=== PATIENT | male | born 1970 | race Caucasian/White ===

== ENCOUNTER 2021-06-28 20:03 | Inpatient (IN) ==
[2021-06-28] MEDS ORDERED: SODIUM CHLORIDE 0.9% 1000ML 1,000 ML IV SCH (20:30)
[2021-06-28 20:58] LABS: Basophils # (auto) 0.01 K/uL (0-0.2); Basophils % (auto) 0.1 %; Eosinophils % (auto) 0.7 %; Hematocrit (blood only) 38.7 % (42-52); Immature Granulocytes # (auto) 0.04 K/uL (0.00-0.02); Immature Granulocytes % (auto) 0.3 %; Lymphocytes # (auto) 1.07 K/uL (1.2-3.4); Lymphocytes % (auto) 7.5 %; Mean Corpuscular Hemoglobin 25.8 pg (25-34); Mean Corpuscular Hgb Conc 33.6 g/dL (32-36); Mean Corpuscular Volume 76.8 fL (80-100); Mean Platelet Volume 8.7 fL (7.4-10.4); Monocytes # (auto) 1.33 K/uL (0.11-0.59); Monocytes % (auto) 9.3 %; Neutrophils # (auto) 11.79 K/uL (1.4-6.5); Neutrophils % (auto) 82.1 %; Platelet Count 161 K/uL (130-400); RDW Coefficient of Variation 14.6 % (11.5-14.5); RDW Standard Deviation 41.1 fL (36.4-46.3); Red Blood Count 5.04 M/uL (4.7-6.1); White Blood Count 14.34 K/uL (4.8-10.8)
[2021-06-28 21:07] LABS: iSTAT Creatinine 1.3 mg/dl (0.6-1.3); iSTAT Hemoglobin 12.9 g/dl (14.0-18.0); iSTAT Ionized Calcium 1.23 mmol/l (1.12-1.32); iSTAT Potassium 3.7 mmol/L (3.3-5.0)
[2021-06-28 21:08] LABS: INR 1.1 (0.9-1.1); Partial Thromboplastin Ratio 1.2; Partial Thromboplastin Time 31.1 Seconds (21.0-31.0); Prothrombin Time 10.7 Seconds (9.0-12.0)
[2021-06-28 21:10] LABS: Appearance Urine Clear (Clear); Bacteria Urine Automated Negative (Negative); Bilirubin Urine Negative (Negative); Blood Urine Trace (Negative); Cast Urine Automated 0 /lpf (0-5); Color Urine Yellow; Epithelial Cell Urine Auto 20-30 /lpf (0-5); Glucose Urine UA Negative (Negative); Ketones Urine Negative (Negative); Leukocyte Esterase Urine Negative (Negative); Nitrite Urine Negative (Negative); Protein Urine Trace (Negative); RBC Urine Automated 0-4 /hpf (0-4); Specific Gravity Urine 1.017 (1.000-1.030); Urobilinogen Urine Negative (Negative)
[2021-06-28 21:17] LABS: Alanine Aminotransferase 23 U/L (12-78); Albumin Level 3.2 gm/dl (3.4-5.0); Aspartate Aminotransferase 12 U/L (15-37); Blood Urea Nitrogen 13 mg/dl (7-18); Calcium 9.4 mg/dl (8.5-10.1); Carbon Dioxide 25 mmol/L (21-32); Chloride 104 mmol/L (98-107); Creatinine Clr Calc Pharmacy 96.4 ml/min; Est GFR (African American) 71.7 ml/min; Est GFR (Non-African American) 61.9 ml/min; Glucose 131 mg/dl (70-99); Magnesium 2.1 mg/dl (1.8-2.4); Potassium 3.7 mmol/L (3.5-5.1); Sodium 135 mmol/L (136-145)
[2021-06-28 21:21] LABS: Albumin Globulin Ratio 0.8 (0.9-2); Alkaline Phosphatase 97 U/L (45-117); Globulin 3.9 gm/dl (2.5-4.0); Total Protein 7.1 gm/dl (6.4-8.2); Troponin I < 0.015 ng/ml (0-0.045)
[2021-06-28] MEDS ORDERED: OPTIRAY 320 100ml IV ONE (21:55)
[2021-06-28] MEDS ORDERED: VANCOMYCIN HCL 2,750 MG in SODIUM CHLORIDE 0.9% 500 ML IV ONE (22:35)
[2021-06-28] MEDS ORDERED: PIPERACILLIN/TAZOBACTAM 4.5 GM/120 ML BAG IV ONE (22:35)
[2021-06-28] MEDS ORDERED: VANCOMYCIN CONSULT ACTIVE PRN (22:35)
[2021-06-28] MEDS ORDERED: ACETAMINOPHEN 1,000 MG/100 ML VIAL IV STA (22:52)
--- NOTE | 2021-06-28 23:00 | History & Physical Report ---
Date of Service June 28, 2021 Assessment & Plan (1) Perineal abscess: Plan: 1. Perineal Abscess - CT Pelvis: Tubular shaped, curvilinear peripheral enhancing fluid collection 9 x2.4cm abscess from base of penis to scrotal junction. - s/p I&D in OR by urology - vanc and zosyn for MRSA and gram neg/anerobic coverage - blood culture and anerobic culture pending - telemetry monitoring 2. DM2 - SSI - A1c in AM DVT ppx: scds FEN/GI: dm2 diet Code status: full code dispo: Tele (2) Diabetes: History of Present Illness Primary Care Provider: Robinson Pinedokayla 50 yo M with hx recurrent perineal abscesses, psoriasis and diabetes in ER for repeat abscess formation. He is on tremfya for treatment of the psoriasis, and noticed that he usually gets these infections about 1 week after he gets the shot. States the pain is 0/10 when sitting still in bed, 4/10 when trying to adjust and move around the bed. Had a fever of 102 and chills at home. 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)) ferrous fumarate 325 mg (106 mg 325 mg PO HS 11/21/19 06/28/21 History iron) tablet metformin 1,000 mg tablet 1,000 mg PO BID 11/21/19 06/28/21 History pantoprazole 40 mg granules 40 mg PO Q OTHER DAY 11/21/19 06/28/21 History delayed-release for susp in packet metoprolol tartrate 50 mg tablet 50 mg PO QPM 12/02/19 06/28/21 History metoprolol tartrate 50 mg tablet 100 mg PO QAM 12/02/19 06/28/21 History betamethasone dipropionate 0.05 % 1 applic TOPICAL BID #15 g 08/03/20 06/28/21 Rx topical cream nystatin 100,000 unit/gram topical 1 applic TOP BID #15 gm 08/03/20 06/28/21 Rx cream cetirizine 10 mg tablet 10 mg PO QAM 09/17/20 06/28/21 History lisinopril 2.5 mg tablet 2.5 mg PO HS 09/17/20 06/28/21 History semaglutide (Ozempic) 0.5 mg SUBCUT WK 09/22/20 06/28/21 History tadalafil 5 mg tablet 18.5 mg PO DAILY #30 tab 03/23/21 06/28/21 Rx sulfamethoxazole 800 1 tab PO BID 10 Days #20 tab 06/27/21 06/28/21 Rx mg-trimethoprim 160 mg tablet (Bactrim DS) ibuprofen 200 mg tablet 200 mg PO Q6H PRN 06/28/21 06/28/21 History Past Med/Surg History Medical History Diabetes mellitus, type 2 NIDDM GERD (gastroesophageal reflux disease) HTN (hypertension) Hyperlipidemia Morbid obesity Psoriasis PVC (premature ventricular contraction) Pt relates they essentially stopped when he stopped using Flonase Thalassemia Urethral stricture Surgical History H/O drainage of abscess History of colonoscopy History of cystoscopy 12/02/2019 [facility] History of esophagogastroduodenoscopy (EGD) History of surgery perineal abscess drained and excised History of urethrotomy History of wisdom tooth extraction Family History Grandmother Diabetes Grandmother Diabetes Father Family history of diabetes mellitus Aunt Family history of diabetes mellitus Grandmother (Paternal) Family history of diabetes mellitus Other No family history of adverse response to anesthesia Social History Smoking Status: Former smoker Smoking End Date: 10 years ago; Second Hand Exposure: No; Hx Alcohol Use: Yes Alcohol type: beer Hx Substance Use: No Preferred Language: Uzbek Communication Ability: Effective House Player Required: No Beliefs That Will Affect Care: Worship Worship Beliefs: jewish marital status: Current Living Situation: Spouse and Family Current Living Situation Comment: and 2 kids current occupational status: employed Feels Safe at Home: Yes Safety Concerns: Feels Safe At This Time Assistive Devices: Glasses Review of Systems Constitutional: + fever and + chills; no sweats and no fatigue Eyes: no blind spots and no discharge Ear, Nose, Mouth, Throat: no hearing loss and no nasal congestion Respiratory: no cough and no dyspnea Cardiovascular: no chest pain, no dyspnea on exertion and no edema Gastrointestinal: no abdominal pain, no nausea, no vomiting, no constipation, no diarrhea/loose stools and no blood in stools Genitourinary: + genital pain, + scrotal swelling and + testicle pain; no dysuria, no difficulty urinating or no hematuria Musculoskeletal: no joint pain and no myalgia Neurologic: no tingling, no numbness and no headache(s) Endocrine: no fatigue Physical Exam Physical Exam: Constitutional: obese, sitting comfortably in bed, Eyes: EOMI, pupils equal and reactive bilaterally, no scleral icterus Cardiac: RRR, no murmurs, gallops or rubs. Normal S1, S2 Pulm: CTA BL, no wheezes, rhonchi, crackles or rubs, moving air well throughout both lungs Abd: soft, nontender, nondistended, normal bowel sounds, no rebound or guarding : deferred by patient request, see Urology note Extremities: 2+ peripheral pulses, no edema Neuro: no focal deficits, moving all 4 limbs, A&Ox3 Results & Data Results & Data ([facility]) Vital Signs (Past 12 Hours) Vital Signs Temp Pulse Pulse Resp BP BP Pulse Ox 06/28/21 22:36 102 H 16 111/69 96 06/28/21 20:49 96 06/28/21 20:08 38.6 C H 106 H 20 99/54 L 93 Laboratory Results Laboratory Results WBC 14.34 K/uL (4.8-10.8) H 06/28/21 20:45 RBC 5.04 M/uL (4.7-6.1) 06/28/21 20:45 Hgb 13.0 g/dL (14.0-18.0) L 06/28/21 20:45 POC Hgb 12.9 g/dl (14.0-18.0) L 06/28/21 20:54 Hct 38.7 % (42-52) L 06/28/21 20:45 POC Hct 38 % (42-52) L 06/28/21 20:54 MCV 76.8 fL (80-100) L 06/28/21 20:45 MCH 25.8 pg (25-34) 06/28/21 20:45 MCHC 33.6 g/dL (32-36) 06/28/21 20:45 RDW Std Deviation 41.1 fL (36.4-46.3) 06/28/21 20:45 RDW Coeff of Matthias 14.6 % (11.5-14.5) H 06/28/21 20:45 Plt Count 161 K/uL (130-400) 06/28/21 20:45 MPV 8.7 fL (7.4-10.4) 06/28/21 20:45 Immature Gran % (Auto) 0.3 % 06/28/21 20:45 Neut % (Auto) 82.1 % 06/28/21 20:45 Lymph % (Auto) 7.5 % 06/28/21 20:45 [place] % (Auto) 9.3 % 06/28/21 20:45 Eos % (Auto) 0.7 % 06/28/21 20:45 Baso % (Auto) 0.1 % 06/28/21 20:45 Neut # (Auto) 11.79 K/uL (1.4-6.5) H 06/28/21 20:45 Lymph # (Auto) 1.07 K/uL (1.2-3.4) L 06/28/21 20:45 [place] # (Auto) 1.33 K/uL (0.11-0.59) H 06/28/21 20:45 Eos # (Auto) 0.10 K/uL (0-0.5) 06/28/21 20:45 Baso # (Auto) 0.01 K/uL (0-0.2) 06/28/21 20:45 Immature Gran # (Auto) 0.04 K/uL (0.00-0.02) H 06/28/21 20:45 PT 10.7 Seconds (9.0-12.0) 06/28/21 20:45 INR 1.1 (0.9-1.1) 06/28/21 20:45 APTT 31.1 Seconds (21.0-31.0) H 06/28/21 20:45 PTT Ratio 1.2 06/28/21 20:45 POC Sodium 136 mmol/L (135-144) 06/28/21 20:54 Sodium 135 mmol/L (136-145) L 06/28/21 20:45 POC Potassium 3.7 mmol/L (3.3-5.0) 06/28/21 20:54 Potassium 3.7 mmol/L (3.5-5.1) 06/28/21 20:45 POC Chloride 98 mmol/L (101-112) L 06/28/21 20:54 Chloride 104 mmol/L (98-107) 06/28/21 20:45 Carbon Dioxide 25 mmol/L (21-32) 06/28/21 20:45 POC Total CO2 22 mmol/L (24-31) L 06/28/21 20:54 Anion Gap 6.0 (3-11) 06/28/21 20:45 POC Anion Gap 21.0 mmol/L (16-25) 06/28/21 20:54 POC BUN 14 mg/dl (7-18) 06/28/21 20:54 BUN 13 mg/dl (7-18) 06/28/21 20:45 Creatinine 1.33 mg/dl (0.6-1.4) 06/28/21 20:45 POC Creatinine 1.3 mg/dl (0.6-1.3) 06/28/21 20:54 Est Cr Clr Drug Dosing 96.4 ml/min 06/28/21 20:45 Est GFR ( Amer) 71.7 ml/min 06/28/21 20:45 Est GFR (Non-Af Amer) 61.9 ml/min 06/28/21 20:45 BUN/Creatinine Ratio 10.0 (10-20) 06/28/21 20:45 Glucose 131 mg/dl (70-99) H 06/28/21 20:45 POC Glucose 111 mg/dl (70-99) H 06/29/21 01:26 POC Glucose (other) 138 mg/dl (70-99) H 06/28/21 20:54 Lactate 1.6 mmol/L (0.4-2.0) 06/28/21 20:45 Calcium 9.4 mg/dl (8.5-10.1) 06/28/21 20:45 POC Ioniz Calcium Kar 1.23 mmol/l (1.12-1.32) 06/28/21 20:54 Magnesium 2.1 mg/dl (1.8-2.4) 06/28/21 20:45 Total Bilirubin 1.0 mg/dl (0.2-1) 06/28/21 20:45 AST 12 U/L (15-37) L 06/28/21 20:45 ALT 23 U/L (12-78) 06/28/21 20:45 Alkaline Phosphatase 97 U/L (45-117) 06/28/21 20:45 Troponin I < 0.015 ng/ml (0-0.045) 06/28/21 20:45 Total Protein 7.1 gm/dl (6.4-8.2) 06/28/21 20:45 Albumin 3.2 gm/dl (3.4-5.0) L 06/28/21 20:45 Globulin 3.9 gm/dl (2.5-4.0) 06/28/21 20:45 Albumin/Globulin Ratio 0.8 (0.9-2) L 06/28/21 20:45 Procalcitonin 0.08 ng/ml (0-0.5) 06/28/21 20:45 Urine Color Yellow 06/28/21 20:40 Urine Appearance Clear (Clear) 06/28/21 20:40 Urine pH 6.0 (4.5-7.5) 06/28/21 20:40 Ur Specific [place] 1.017 (1.000-1.030) 06/28/21 20:40 Urine Protein Trace (Negative) H 06/28/21 20:40 Urine Glucose (UA) Negative (Negative) 06/28/21 20:40 Urine Ketones Negative (Negative) 06/28/21 20:40 Urine Blood Trace (Negative) H 06/28/21 20:40 Urine Nitrite Negative (Negative) 06/28/21 20:40 Urine Bilirubin Negative (Negative) 06/28/21 20:40 Urine Urobilinogen Negative (Negative) 06/28/21 20:40 Ur Leukocyte Esterase Negative (Negative) 06/28/21 20:40 Urine WBC (Auto) 1-5 /hpf (0-5) 06/28/21 20:40 Urine RBC (Auto) 0-4 /hpf (0-4) 06/28/21 20:40 U Hyaline Cast (Auto) 0 /lpf (0-5) 06/28/21 20:40 U Epithel Cells (Auto) 20-30 /lpf (0-5) H 06/28/21 20:40 Urine Bacteria (Auto) Negative (Negative) 06/28/21 20:40 COVID-19 Eval Order Covid19 at [facility] 06/28/21 22:47 SARS-CoV-2 (PCR) NEGATIVE (Negative) 06/28/21 22:47 Supervising Physician Co-Signing Physician Notes Attending addendum: I have physically seen this patient, have supervised the medical residents activities, and agree with the H&P unless as otherwise noted. Assessment and Plan: Perineal abscess- Being taken to the OR this evening by urology for I&D Empiric antibiotics with vancomycin IV and Zosyn IV per pharmacokinetic monitoring Follow all cultures Admit to monitored bed to monitor for possible sepsis post procedure Diabetes mellitus- N.p.o. for now Placed on Accu-Cheks before meals and at bedtime with NovoLog coverage per scale Check hemoglobin A1c Remaining orders and notations as noted Resident Activity Tracking Resident Involvement: Resident Care Provided Care Provided: Adult Hospital Medicine
--- NOTE | 2021-06-28 23:14 | Urology Consultation ---
Date of Consultation June 28, 2021 Assessment & Plan (1) Perineal abscess: Patient is being admitted to the hospital and the hospitalist service. Due to the CT scan findings and the fact that the patient is febrile with tachycardia did discuss case with Dr. Hodgson of urology and is planning on incision and drainage of this abscess this evening. We will keep the patient n.p.o. We will maintain the patient on broad-spectrum antibiotics. He has received vancomycin and Zosyn in the emergency department A Covid test has been performed and is pending we will follow for the results of this. Additional recommendations will be forthcoming based on operative findings as well as patient's postoperative course as it unfolds. ATTENDING NOTE: Agree with above. Independently evaluated, assessed, examined, and consented. Plan for Incision and drainage of abscess from perineum tracking towards scrotum and penile tissues. Sepsis with tachycardia, hypotension, and fever. Multiple comorbidities. Risks and benefits discussed at length for procedure. These include bleeding, infection, injury to surrounding tissues or organs, and risks associated with anesthesia. Patient states understanding and agrees to proceed. Will sign consent and proceed. Agree with plan for broad spectrum abx. Will need wound care for management of abscess with packing. History of Present Illness Reason for Consultation: Perineal abscess History of Present Illness This is a 50-year-old male with a history of recurrent perineal abscesses. Patient's records were reviewed and patient was initially seen for this problem by Dr. Xavi Flood in [place]. Patient was noted to have recurrent perineal abscesses and available records show that Dr. Flood performed a colonoscopy which did not show any fistulous and he also performed an I&D of a perineal abscess in August 2019. Patient had continued recurrence of this problem so he was ultimately seen by Dr. Kaveh Flood at [facility] where an I&D of the perineal abscess was performed most recently in September 2020. Patient does note that since this most recent I&D of his perineal abscess he continued to have recurrence of these abscesses. He notes that they are usually superficial and communicate with the skin and often drained spontaneously without any further sequela. Patient notes that his current presentation to [facility] occurred couple days ago when patient noted some increasing pain, erythema, and warmth of his perineum. In addition he has had fevers and chills. He denies any nausea vomiting. He does have a slight cough but denies any chest pain. Because of a history of perineal abscesses he did report to [facility]. In the emergency department the patient had labs and imaging which independent reviewed. Patient did have a CT scan of his pelvis that showed a tubular shaped curvilinear enhancing fluid collection measuring about 9 cm in length with a diameter of 2.4 cm concerning for perineal abscess. The abscess in question extends from the base of the penis and courses through the subcutaneous fat to the perineum terminating near the scrotal junction. Labs included a CBC were white blood cell count was 14.3. Hemoglobin and hematocrit were 13.0 and 12.9. Patient's platelet count was noted to be within normal range. Chemistry profile showed sodium was 135 and potassium was 3.7. BUN and creatinine were both noted to be within normal range. A lactic acid level was noted to be normal. A Covid test was performed and is pending. Chest x-ray did not show any evidence of pneumonia. An EKG showed sinus tachycardia without acute ischemic changes. I did question the patient on additional symptoms. The patient says that he does not have any dysuria or urinary hesitancy. He also denies any change in his bowel habits. Concerning his diabetes he reports that this is well controlled with his most recent hemoglobin A1c within the past several weeks was 5.6. He notes that his sugars run between 120 and 140 in the mornings. Patient notes that his most recent oral intake was at approximately 6:00 PM this evening when he had a bowl of chicken soup. He does not report any additional oral intake since that time. At the time of my exam the patient had a slight tachycardia with a heart rate of approxione 102. He was normotensive but he was febrile. He did appear to be uncomfortable. 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)) ferrous fumarate 325 mg (106 mg 325 mg PO HS 11/21/19 06/28/21 History iron) tablet metformin 1,000 mg tablet 1,000 mg PO BID 11/21/19 06/28/21 History pantoprazole 40 mg granules 40 mg PO Q OTHER DAY 11/21/19 06/28/21 History delayed-release for susp in packet metoprolol tartrate 50 mg tablet 50 mg PO QPM 12/02/19 06/28/21 History metoprolol tartrate 50 mg tablet 100 mg PO QAM 12/02/19 06/28/21 History betamethasone dipropionate 0.05 % 1 applic TOPICAL BID #15 g 08/03/20 06/28/21 Rx topical cream nystatin 100,000 unit/gram topical 1 applic TOP BID #15 gm 08/03/20 06/28/21 Rx cream cetirizine 10 mg tablet 10 mg PO QAM 09/17/20 06/28/21 History lisinopril 2.5 mg tablet 2.5 mg PO HS 09/17/20 06/28/21 History semaglutide (Ozempic) 0.5 mg SUBCUT WK 09/22/20 06/28/21 History tadalafil 5 mg tablet 18.5 mg PO DAILY #30 tab 03/23/21 06/28/21 Rx sulfamethoxazole 800 1 tab PO BID 10 Days #20 tab 06/27/21 06/28/21 Rx mg-trimethoprim 160 mg tablet (Bactrim DS) ibuprofen 200 mg tablet 200 mg PO Q6H PRN 06/28/21 06/28/21 History Patient History Medical History Diabetes mellitus, type 2 NIDDM GERD (gastroesophageal reflux disease) HTN (hypertension) Hyperlipidemia Morbid obesity Psoriasis PVC (premature ventricular contraction) Pt relates they essentially stopped when he stopped using Flonase Thalassemia Urethral stricture Surgical History H/O drainage of abscess History of colonoscopy History of cystoscopy 12/02/2019 [facility] History of esophagogastroduodenoscopy (EGD) History of surgery perineal abscess drained and excised History of urethrotomy History of wisdom tooth extraction Family History Grandmother Diabetes Grandmother Diabetes Father Family history of diabetes mellitus Aunt Family history of diabetes mellitus Grandmother (Paternal) Family history of diabetes mellitus Other No family history of adverse response to anesthesia Social History Smoking Status: Current every day smoker Second Hand Exposure: No; Hx Alcohol Use: Yes Alcohol type: beer Hx Substance Use: No Preferred Language: Czech Communication Ability: Effective Infection Prevention Specialist Required: No Beliefs That Will Affect Care: None and Caodaism Caodaism Beliefs: sabianism marital status: Current Living Situation: Spouse current occupational status: employed Feels Safe at Home: Yes Assistive Devices: Glasses Review of Systems Constitutional: + fever and + chills Eyes: no diplopia Ear, Nose, Mouth, Throat: no ear pain and no sore throat Respiratory: + cough; no dyspnea Cardiovascular: no chest pain Gastrointestinal: no abdominal pain, no nausea and no vomiting Genitourinary: + as per Subjective / HPI; no dysuria Musculoskeletal: no back pain Integumentary: no rash Neurologic: no localized weakness Physical Exam Constitutional: well developed, well nourished and + obese Eyes: no conjunctival abnormality ENMT: Ears: no hearing impairment and no external ear abnormality Nose: no external nose abnormality Mouth: no lip abnormality Neck: trachea midline Respiratory: normal respiratory effort; no respiratory distress and no labored breathing Cardiovascular: Rate/Rhythm: regular rate and regular rhythm Gastrointestinal (Abdomen): Abdomen is soft and nondistended. There is no pain with palpation. Musculoskeletal: No gross orthopedic abnormalities. No calf tenderness Skin: no rashes Neurologic: moves all extremities Psychiatric: A+Ox3, euthymic affect Genitourinary: Patient's perineal area was examined. The area between the scrotum and rectum was markedly indurated, erythematous, and warm. The area was painful to palpation. There were no open areas or draining. Results & Data ([facility]) Vital Signs (Past 12 Hours) Vital Signs Temp Pulse Pulse Resp BP BP Pulse Ox 06/28/21 22:36 102 H 16 111/69 96 06/28/21 20:49 96 06/28/21 20:08 38.6 C H 106 H 20 99/54 L 93 PG Care Time/CCT Total # of Minutes Spent Total Time Spent with Patient: Total time spent is greater than 50% in coordination of care (as documented) at patient's floor/unit and/or counseling patient: Coding Level of Care Code 32105 Inpt Consult Level 5 Diagnoses Perineal abscess L02.215
[2021-06-28] MEDS ORDERED: ePHEDrine sulfate 50 MG/ML AMP IV PRN (23:47)
[2021-06-28] MEDS ORDERED: ONDANSETRON INJ 2 MG/ML 2 ML VIAL IV PRN (23:47)
[2021-06-28] MEDS ORDERED: HYDROmorphone INJ 2 MG/ML SYR/VIAL IV PRN (23:47)
[2021-06-28] MEDS ORDERED: fentaNYL citrate 100 MCG/2 ML VIAL IV PRN (23:47)
[2021-06-28] MEDS ORDERED: ATROPINE SULFATE 0.1 MG/ML 10ML SYR IV PRN (23:47)
--- NOTE | 2021-06-28 23:47 | Anesthesiology Consultation ---
Date of Service June 28, 2021 Assessment & Plan Chart Review Chart Review: Acceptable Risk for Surgery Consults Requested none ASA [id number] Proposed Anesthesia Anesthesia Type: General Risk / Benefits Reviewed With: PT / POA / Parent / Guardian, Accepts Plan and Informed Consent Obtained History Surgery Operation Date: 06/28/21 23:30 Proposed Procedures p Scrotal Hydrocelectomy - Otoniel Hodgson, DO Height/Weight Height: 6 ft 2 in Weight: 133.1 kg Allergies Allergy/AdvReac Type Severity Reaction Status Date / Time No Known Allergies Allergy Verified 06/28/21 21:22 Medications Home Medications Medication Instructions Recorded Confirmed Last Taken atorvastatin 20 mg tablet 20 mg PO QPM 11/21/19 06/28/21 06/28/21 famotidine 20 mg tablet (Acid 20 mg PO QAM 11/21/19 06/28/21 06/28/21 [employer] (famotidine)) ferrous fumarate 325 mg (106 mg 325 mg PO HS 11/21/19 06/28/21 06/28/21 iron) tablet metformin 1,000 mg tablet 1,000 mg PO BID 11/21/19 06/28/21 06/28/21 pantoprazole 40 mg granules 40 mg PO Q OTHER DAY 11/21/19 06/28/21 06/28/21 delayed-release for susp in packet metoprolol tartrate 50 mg tablet 50 mg PO QPM 12/02/19 06/28/21 06/28/21 metoprolol tartrate 50 mg tablet 100 mg PO QAM 12/02/19 06/28/21 06/28/21 betamethasone dipropionate 0.05 % 1 applic TOPICAL BID #15 g 08/03/20 06/28/21 09/14/20 topical cream nystatin 100,000 unit/gram topical 1 applic TOP BID #15 gm 08/03/20 06/28/21 09/26/20 cream cetirizine 10 mg tablet 10 mg PO QAM 09/17/20 06/28/21 06/28/21 lisinopril 2.5 mg tablet 2.5 mg PO HS 09/17/20 06/28/21 06/28/21 semaglutide (Ozempic) 0.5 mg SUBCUT WK 09/22/20 06/28/21 06/24/21 tadalafil 5 mg tablet 18.5 mg PO DAILY #30 tab 03/23/21 06/28/21 Unknown sulfamethoxazole 800 1 tab PO BID 10 Days #20 tab 06/27/21 06/28/21 06/28/21 mg-trimethoprim 160 mg tablet (Bactrim DS) ibuprofen 200 mg tablet 200 mg PO Q6H PRN 06/28/21 06/28/21 06/28/21 Active Medications Generic Name Dose Route Start Last Admin Trade Name Freq PRN Reason Stop Dose Admin Vancomycin HCl 2,750 mg/ 555 mls @ 200 mls/hr 06/28/21 22:35 06/28/21 23:02 Sodium Chloride IV 06/29/21 01:21 200 mls/hr NOW ONE Administration NPO Date Last Intake of Fluids: 06/28/21 Time Last Intake of Fluids: 18:00 Date Last Intake of Solids: 06/28/21 Time Last Intake of Solids: 18:00 Past Medical History Medical History Diabetes mellitus, type 2 NIDDM GERD (gastroesophageal reflux disease) HTN (hypertension) Hyperlipidemia Morbid obesity Psoriasis PVC (premature ventricular contraction) Pt relates they essentially stopped when he stopped using Flonase Thalassemia Urethral stricture Exercise / Class Metabolic Activity II 4-5 Yardwork/Stairs/Walk up hill Past Family History Family History Grandmother Diabetes Grandmother Diabetes Father Family history of diabetes mellitus Aunt Family history of diabetes mellitus Grandmother (Paternal) Family history of diabetes mellitus Other No family history of adverse response to anesthesia Past Surgical History Surgical History H/O drainage of abscess History of colonoscopy History of cystoscopy 12/02/2019 [facility] History of esophagogastroduodenoscopy (EGD) History of surgery perineal abscess drained and excised History of urethrotomy History of wisdom tooth extraction Past Anesthesia History No Hx of Anesthesia Complications and No Family Hx of Anesthesia Complications History of PONV No Hx of PONV and No Hx of Motion Sickness Social History Smoking Status: Current every day smoker tobacco type: cigarettes Hx Alcohol Use: Yes Alcohol type: beer alcohol intake frequency: a few times a month Hx Substance Use: No substance use type: does not use Physical Exam Vital Signs Last Vital Signs Temp 101.5 F H 06/28/21 20:08 Pulse 102 H 06/28/21 22:36 Resp 16 06/28/21 22:36 BP 111/69 06/28/21 22:36 Pulse Ox 96 06/28/21 22:36 ENMT Mouth: no dentition abnormality Thyromental Distance: > or= 3.5 Finger Breadths Mallampati Class: III Neck normal visual inspection Respiratory normal respiratory effort Auscultation: lungs clear to auscultation bilaterally Cardiovascular Rate/Rhythm: regular rate and regular rhythm Testing Laboratory Results 06/28/21 20:45 06/28/21 20:45 PT 10.7 Seconds (9.0-12.0) 06/28/21 20:45 INR 1.1 (0.9-1.1) 06/28/21 20:45 APTT 31.1 Seconds (21.0-31.0) H 06/28/21 20:45 Urine Color Yellow 06/28/21 20:40 Urine Appearance Clear (Clear) 06/28/21 20:40 Urine pH 6.0 (4.5-7.5) 06/28/21 20:40 Ur Specific [place] 1.017 (1.000-1.030) 06/28/21 20:40 Urine Protein Trace (Negative) H 06/28/21 20:40 Urine Glucose (UA) Negative (Negative) 06/28/21 20:40 Urine Ketones Negative (Negative) 06/28/21 20:40 Urine Nitrite Negative (Negative) 06/28/21 20:40 Ur Leukocyte Esterase Negative (Negative) 06/28/21 20:40 Urine WBC (Auto) 1-5 /hpf (0-5) 06/28/21 20:40 Urine RBC (Auto) 0-4 /hpf (0-4) 06/28/21 20:40 U Hyaline Cast (Auto) 0 /lpf (0-5) 06/28/21 20:40 U Epithel Cells (Auto) 20-30 /lpf (0-5) H 06/28/21 20:40 Urine Bacteria (Auto) Negative (Negative) 06/28/21 20:40 06/28/21 20:54 POC Glucose (other) 138 H Electrocardiogram Date: 06/28/21 Sinus tachycardia, rate 105 bpm Cannot rule out Inferior infarct , age undetermined Cannot rule out Anterior infarct , age undetermined Abnormal ECG When compared with ECG of 22-SEP-2020 08:36, Questionable change in QRS axis ST no longer elevated in Lateral leads
[2021-06-28] MEDS ORDERED: MIDAZOLAM HCL 1 MG/ML 2ML VIAL ONE (23:57)
[2021-06-28] MEDS ORDERED: PROPOFOL IV EMULSION 10 MG/ML 20 ML VIAL IV ONE (23:57)
[2021-06-28] MEDS ORDERED: fentaNYL citrate 100 MCG/2 ML VIAL ONE (23:58)
--- NOTE | 2021-06-29 | Emergency Department Note ---
History of Present Illness General Chief complaint: Infection Stated complaint: INFECTION, FEVER Time Seen by Provider: 06/28/21 20:19 History of Present Illness Provider complaint: Fever Onset (ago): day(s) 2 Location: pelvis Severity: mild Pain Consistency: + intermittent Maximum Pain Intensity: 1 Current Pain Intensity: 0 Quality: + aching and + dull Relieved By: + immobilization Exacerbated By: + movement Associated symptoms: + fever/chills and + rash; no chest pain, no cough, no headaches, no malaise, no nausea/vomiting, no seizure, no shortness of breath, no syncope or no weakness 50-year-old male presents emergency department for fever. Patient reports she has been having fever since today. Patient states that he has a history of having perineal abscesses and follows up with Dr. Flood for them. He states usually they pop on their own however the one that started yesterday did not pop and has been causing increasing pain. He rates the pain a 1 out of 10 and dull and states it only hurts if he walks. Patient does report having fever today T- max 102.5. No dysuria hematuria. No abdominal pain. No neck pain. No chest cough. Patient is vaccinated against COVID-19. Home Medications Medication Instructions Recorded Confirmed Type atorvastatin 20 mg tablet 20 mg PO QPM 11/21/19 06/28/21 History famotidine 20 mg tablet (Acid 20 mg PO QAM 11/21/19 06/28/21 History Bead Wire Insulator (famotidine)) ferrous fumarate 325 mg (106 mg 325 mg PO HS 11/21/19 06/28/21 History iron) tablet metformin 1,000 mg tablet 1,000 mg PO BID 11/21/19 06/28/21 History pantoprazole 40 mg granules 40 mg PO Q OTHER DAY 11/21/19 06/28/21 History delayed-release for susp in packet metoprolol tartrate 50 mg tablet 50 mg PO QPM 12/02/19 06/28/21 History metoprolol tartrate 50 mg tablet 100 mg PO QAM 12/02/19 06/28/21 History betamethasone dipropionate 0.05 % 1 applic TOPICAL BID #15 g 08/03/20 06/28/21 Rx topical cream nystatin 100,000 unit/gram topical 1 applic TOP BID #15 gm 08/03/20 06/28/21 Rx cream cetirizine 10 mg tablet 10 mg PO QAM 09/17/20 06/28/21 History lisinopril 2.5 mg tablet 2.5 mg PO HS 09/17/20 06/28/21 History semaglutide (Ozempic) 0.5 mg SUBCUT WK 09/22/20 06/28/21 History tadalafil 5 mg tablet 18.5 mg PO DAILY #30 tab 03/23/21 06/28/21 Rx sulfamethoxazole 800 1 tab PO BID 10 Days #20 tab 06/27/21 06/28/21 Rx mg-trimethoprim 160 mg tablet (Bactrim DS) ibuprofen 200 mg tablet 200 mg PO Q6H PRN 06/28/21 06/28/21 History Allergies Allergy/AdvReac Type Severity Reaction Status Date / Time No Known Allergies Allergy Verified 06/28/21 21:22 Past Med/Surg History Medical History Diabetes mellitus, type 2 NIDDM GERD (gastroesophageal reflux disease) HTN (hypertension) Hyperlipidemia Morbid obesity Psoriasis PVC (premature ventricular contraction) Pt relates they essentially stopped when he stopped using Flonase Thalassemia Urethral stricture Surgical History H/O drainage of abscess History of colonoscopy History of cystoscopy 12/02/2019 [facility] History of esophagogastroduodenoscopy (EGD) History of surgery perineal abscess drained and excised History of urethrotomy History of wisdom tooth extraction Family History Grandmother Diabetes Grandmother Diabetes Father Family history of diabetes mellitus Aunt Family history of diabetes mellitus Grandmother (Paternal) Family history of diabetes mellitus Other No family history of adverse response to anesthesia Social History Smoking Status: Current every day smoker Second Hand Exposure: No; Hx Alcohol Use: Yes Alcohol type: beer Hx Substance Use: No Preferred Language: Malian Communication Ability: Effective Relationship Consultant Required: No Beliefs That Will Affect Care: None and Congregational Congregational Beliefs: yazidism marital status: Current Living Situation: Spouse current occupational status: employed Feels Safe at Home: Yes Assistive Devices: Glasses Review of Systems A total of 10 systems reviewed and were otherwise negative Physical Exam Vital Signs Vital Signs - 24 hr 06/28/21 20:08 06/28/21 20:49 06/28/21 22:36 Temperature 38.6 C H Temperature Source Temporal Artery Scan Pulse Rate 106 H Pulse Rate [Right] 102 H Pulse Rhythm Regular Pulse Rhythm [Right] Regular Pulse Strength Normal Pulse Strength [Right] Normal Respiratory Rate 20 16 Respiratory Effort / Characteristics Non-Labored Spontaneous Non-Labored Spontaneous Respiratory Depth Normal Normal Respiratory Pattern Regular Blood Pressure 99/54 L Blood Pressure [Right Arm] 111/69 Blood Pressure Mean 69 Blood Pressure Mean [Right Arm] 83 Blood Pressure Position Sitting Blood Pressure Position [Right Arm] Sitting Pulse Oximetry 93 96 96 Oxygen Delivery Method Room Air Room Air Room Air Sepsis Recent Fever Within 48 Hours Yes Sepsis New/Unexplained Change in Mental Status No Sepsis Action Taken by Nursing No Action Required Physical Exam GENERAL: He is oriented to person, place, and time. He appears well-developed and well-nourished. He does not appear distressed. HENT: Exam performed. - Head: Normocephalic and atraumatic. - Right Ear: External ear normal. No mastoid tenderness. - Left Ear: External ear normal. No mastoid tenderness. - Mouth/Throat: The oropharynx is clear and moist. No trismus in the jaw. No dental abscesses or uvula swelling. No oropharyngeal exudate or tonsillar abscesses. EYES: Conjunctivae and EOM are normal. Pupils are equal, round, and reactive to light. Right eye exhibits no discharge. Left eye exhibits no discharge. No scleral icterus. NECK: Normal range of motion. Neck supple. No JVD present. No spinous process tenderness present. No carotid bruit present. No rigidity. No tracheal deviation and normal range of motion present. No Brudzinski's sign and no Kernig's sign noted. CV: Normal rate, regular rhythm, normal heart sounds and intact distal pulses. There is no peripheral edema. Palpable radial pulses bue. PULM/CHEST: Effort normal and breath sounds normal. No respiratory distress. No stridor. He has no wheezes. He has no rales. - Chest Wall: He exhibits no tenderness. ABD: The abdomen is soft. Bowel sounds are normal. He has no distension. No mass is present. There is no tenderness. There is no rebound, no guarding, no Dela Cruz's sign and no tenderness at McBurney's point. Rovsig negative. : Large erythematous tender and fluctuant area in the perineum. There is erythema and warmth extending from the anal area to the scrotum particularly over the perineum. There are no black lesions over the perineum. No crepitus over the area. MUSC/SKEL: Normal range of motion. There is no peripheral edema, tenderness or deformity. LYMPH: No cervical adenopathy. NEURO: He is alert and oriented to person, place, and time. He has normal strength. No cranial nerve deficit or sensory deficit. Coordination and gait normal. GCS eye subscore is 4. GCS verbal subscore is 5. GCS motor subscore is 6. Cerebellar tests wnl. SKIN: Skin is warm and dry. He is not diaphoretic. PSYCH: He has a normal mood and affect. Behavior is normal. Judgment and thought content normal. Course Course 2019: The patient was evaluated in room C2. A complete history and physical exam was performed Cardiac monitoring: An order was placed for continuous cardiac monitoring. The monitor shows a rate of 110 with sinus tachycardia rhythm Patient is febrile and tachycardic with a likely source of infection being a likely perineal abscess. Sepsis protocols were initiated. 2246: Labs show leukocytosis of 14. CT of the pelvis does show a tubular shaped peripheral enhancing fluid collection measuring 9 cm in length with a maximum diameter of 2.4 cm concerning for abscess. It extends from the base of the penis and courses Sarapin Nissley through the subcutaneous fat of the perineum fairly midline terminating near to the scrotal junction rather than the perianal soft tissues. Discussed the case with urology who the patient is known to. Mathew wells with Pito Lara PA-C for Dr. Hodgson urology. He states to admit to medicine and he will evaluate the patient. 0000: Patient admitted to medicine and urology taking patient to the OR. Administered Medications Vancomycin HCl 2,750 mg/ (Sodium Chloride) 555 mls @ 200 mls/hr IV NOW ONE Stop: 06/29/21 01:21 Last Admin: 06/28/21 23:02 Dose: 200 mls/hr Documented by: [id number] Discontinued Medications Sodium Chloride (Nss 1000ml) 1,000 mls @ 999 mls/hr IV .Q1H1M ANH Stop: 06/28/21 21:30 Last Infusion: 06/28/21 21:51 Dose: 0 mls/hr Documented by: [id number] Admin: 06/28/21 20:45 Dose: 999 mls/hr Documented by: [id number] Piperacillin Sod/Tazobactam Sod (Zosyn) 4.5 gm in 120 mls @ 240 mls/hr IV NOW ONE Stop: 06/28/21 23:04 Last Admin: 06/28/21 22:48 Dose: 240 mls/hr Documented by: [id number] Acetaminophen (Ofirmev) 1,000 mg in 100 mls @ 400 mls/hr IV NOW STA Stop: 06/28/21 23:06 Last Infusion: 06/28/21 23:29 Dose: 0 mls/hr Documented by: [id number] Admin: 06/28/21 23:02 Dose: 400 mls/hr Documented by: [id number] Ioversol (Optiray 320 100ml) 94 ml IV ONCE ONE Stop: 06/28/21 21:56 Last Admin: 06/28/21 21:55 Dose: 94 ml Documented by: [id number] Medical Decision Making Laboratory Data Result diagrams: 06/28/21 20:45 06/28/21 20:45 Lab Results 06/28/21 06/28/21 06/28/21 Range/Units 20:40 20:45 20:45 WBC 14.34 H (4.8-10.8) K/uL RBC 5.04 (4.7-6.1) M/uL Hgb 13.0 L (14.0-18.0) g/dL POC Hgb (14.0-18.0) g/dl Hct 38.7 L (42-52) % POC Hct (42-52) % MCV 76.8 L (80-100) fL MCH 25.8 (25-34) pg MCHC 33.6 (32-36) g/dL RDW Std Deviation 41.1 (36.4-46.3) fL RDW Coeff of Matthias 14.6 H (11.5-14.5) % Plt Count 161 (130-400) K/uL MPV 8.7 (7.4-10.4) fL Immature Gran % (Auto) 0.3 % Neut % (Auto) 82.1 % Lymph % (Auto) 7.5 % Christian % (Auto) 9.3 % Eos % (Auto) 0.7 % Baso % (Auto) 0.1 % Neut # (Auto) 11.79 H (1.4-6.5) K/uL Lymph # (Auto) 1.07 L (1.2-3.4) K/uL Christian # (Auto) 1.33 H (0.11-0.59) K/uL Eos # (Auto) 0.10 (0-0.5) K/uL Baso # (Auto) 0.01 (0-0.2) K/uL Immature Gran # (Auto) 0.04 H (0.00-0.02) K/uL PT 10.7 (9.0-12.0) Seconds INR 1.1 (0.9-1.1) APTT 31.1 H (21.0-31.0) Seconds PTT Ratio 1.2 POC Sodium (135-144) mmol/L Sodium (136-145) mmol/L POC Potassium (3.3-5.0) mmol/L Potassium (3.5-5.1) mmol/L POC Chloride (101-112) mmol/L Chloride (98-107) mmol/L Carbon Dioxide (21-32) mmol/L POC Total CO2 (24-31) mmol/L Anion Gap (3-11) POC Anion Gap (16-25) mmol/L POC BUN (7-18) mg/dl BUN (7-18) mg/dl Creatinine (0.6-1.4) mg/dl POC Creatinine (0.6-1.3) mg/dl Est Cr Clr Drug Dosing ml/min Est GFR ( Amer) ml/min Est GFR (Non-Af Amer) ml/min BUN/Creatinine Ratio (10-20) Glucose (70-99) mg/dl POC Glucose (other) (70-99) mg/dl Lactate (0.4-2.0) mmol/L Calcium (8.5-10.1) mg/dl POC Ioniz Calcium Kar (1.12-1.32) mmol/l Magnesium (1.8-2.4) mg/dl Total Bilirubin (0.2-1) mg/dl AST (15-37) U/L ALT (12-78) U/L Alkaline Phosphatase (45-117) U/L Troponin I (0-0.045) ng/ml Total Protein (6.4-8.2) gm/dl Albumin (3.4-5.0) gm/dl Globulin (2.5-4.0) gm/dl Albumin/Globulin Ratio (0.9-2) Procalcitonin (0-0.5) ng/ml Urine Color Yellow Urine Appearance Clear (Clear) Urine pH 6.0 (4.5-7.5) Ur Specific Blachly 1.017 (1.000-1.030) Urine Protein Trace H (Negative) Urine Glucose (UA) Negative (Negative) Urine Ketones Negative (Negative) Urine Blood Trace H (Negative) Urine Nitrite Negative (Negative) Urine Bilirubin Negative (Negative) Urine Urobilinogen Negative (Negative) Ur Leukocyte Esterase Negative (Negative) Urine WBC (Auto) 1-5 (0-5) /hpf Urine RBC (Auto) 0-4 (0-4) /hpf U Hyaline Cast (Auto) 0 (0-5) /lpf U Epithel Cells (Auto) 20-30 H (0-5) /lpf Urine Bacteria (Auto) Negative (Negative) COVID-19 Eval Order SARS-CoV-2 (PCR) (Negative) 06/28/21 06/28/21 06/28/21 Range/Units 20:45 20:45 20:45 WBC (4.8-10.8) K/uL RBC (4.7-6.1) M/uL Hgb (14.0-18.0) g/dL POC Hgb (14.0-18.0) g/dl Hct (42-52) % POC Hct (42-52) % MCV (80-100) fL MCH (25-34) pg MCHC (32-36) g/dL RDW Std Deviation (36.4-46.3) fL RDW Coeff of Matthias (11.5-14.5) % Plt Count (130-400) K/uL MPV (7.4-10.4) fL Immature Gran % (Auto) % Neut % (Auto) % Lymph % (Auto) % Christian % (Auto) % Eos % (Auto) % Baso % (Auto) % Neut # (Auto) (1.4-6.5) K/uL Lymph # (Auto) (1.2-3.4) K/uL Christian # (Auto) (0.11-0.59) K/uL Eos # (Auto) (0-0.5) K/uL Baso # (Auto) (0-0.2) K/uL Immature Gran # (Auto) (0.00-0.02) K/uL PT (9.0-12.0) Seconds INR (0.9-1.1) APTT (21.0-31.0) Seconds PTT Ratio POC Sodium (135-144) mmol/L Sodium 135 L (136-145) mmol/L POC Potassium (3.3-5.0) mmol/L Potassium 3.7 (3.5-5.1) mmol/L POC Chloride (101-112) mmol/L Chloride 104 (98-107) mmol/L Carbon Dioxide 25 (21-32) mmol/L POC Total CO2 (24-31) mmol/L Anion Gap 6.0 (3-11) POC Anion Gap (16-25) mmol/L POC BUN (7-18) mg/dl BUN 13 (7-18) mg/dl Creatinine 1.33 (0.6-1.4) mg/dl POC Creatinine (0.6-1.3) mg/dl Est Cr Clr Drug Dosing 96.4 ml/min Est GFR ( Amer) 71.7 ml/min Est GFR (Non-Af Amer) 61.9 ml/min BUN/Creatinine Ratio 10.0 (10-20) Glucose 131 H (70-99) mg/dl POC Glucose (other) (70-99) mg/dl Lactate 1.6 (0.4-2.0) mmol/L Calcium 9.4 (8.5-10.1) mg/dl POC Ioniz Calcium Kar (1.12-1.32) mmol/l Magnesium 2.1 (1.8-2.4) mg/dl Total Bilirubin 1.0 (0.2-1) mg/dl AST 12 L (15-37) U/L ALT 23 (12-78) U/L Alkaline Phosphatase 97 (45-117) U/L Troponin I < 0.015 (0-0.045) ng/ml Total Protein 7.1 (6.4-8.2) gm/dl Albumin 3.2 L (3.4-5.0) gm/dl Globulin 3.9 (2.5-4.0) gm/dl Albumin/Globulin Ratio 0.8 L (0.9-2) Procalcitonin 0.08 (0-0.5) ng/ml Urine Color Urine Appearance (Clear) Urine pH (4.5-7.5) Ur Specific Blachly (1.000-1.030) Urine Protein (Negative) Urine Glucose (UA) (Negative) Urine Ketones (Negative) Urine Blood (Negative) Urine Nitrite (Negative) Urine Bilirubin (Negative) Urine Urobilinogen (Negative) Ur Leukocyte Esterase (Negative) Urine WBC (Auto) (0-5) /hpf Urine RBC (Auto) (0-4) /hpf U Hyaline Cast (Auto) (0-5) /lpf U Epithel Cells (Auto) (0-5) /lpf Urine Bacteria (Auto) (Negative) COVID-19 Eval Order SARS-CoV-2 (PCR) (Negative) 06/28/21 06/28/21 06/28/21 Range/Units 20:54 22:47 22:47 WBC (4.8-10.8) K/uL RBC (4.7-6.1) M/uL Hgb (14.0-18.0) g/dL POC Hgb 12.9 L (14.0-18.0) g/dl Hct (42-52) % POC Hct 38 L (42-52) % MCV (80-100) fL MCH (25-34) pg MCHC (32-36) g/dL RDW Std Deviation (36.4-46.3) fL RDW Coeff of Matthias (11.5-14.5) % Plt Count (130-400) K/uL MPV (7.4-10.4) fL Immature Gran % (Auto) % Neut % (Auto) % Lymph % (Auto) % Christian % (Auto) % Eos % (Auto) % Baso % (Auto) % Neut # (Auto) (1.4-6.5) K/uL Lymph # (Auto) (1.2-3.4) K/uL Christian # (Auto) (0.11-0.59) K/uL Eos # (Auto) (0-0.5) K/uL Baso # (Auto) (0-0.2) K/uL Immature Gran # (Auto) (0.00-0.02) K/uL PT (9.0-12.0) Seconds INR (0.9-1.1) APTT (21.0-31.0) Seconds PTT Ratio POC Sodium 136 (135-144) mmol/L Sodium (136-145) mmol/L POC Potassium 3.7 (3.3-5.0) mmol/L Potassium (3.5-5.1) mmol/L POC Chloride 98 L (101-112) mmol/L Chloride (98-107) mmol/L Carbon Dioxide (21-32) mmol/L POC Total CO2 22 L (24-31) mmol/L Anion Gap (3-11) POC Anion Gap 21.0 (16-25) mmol/L POC BUN 14 (7-18) mg/dl BUN (7-18) mg/dl Creatinine (0.6-1.4) mg/dl POC Creatinine 1.3 (0.6-1.3) mg/dl Est Cr Clr Drug Dosing ml/min Est GFR ( Amer) ml/min Est GFR (Non-Af Amer) ml/min BUN/Creatinine Ratio (10-20) Glucose (70-99) mg/dl POC Glucose (other) 138 H (70-99) mg/dl Lactate (0.4-2.0) mmol/L Calcium (8.5-10.1) mg/dl POC Ioniz Calcium Kar 1.23 (1.12-1.32) mmol/l Magnesium (1.8-2.4) mg/dl Total Bilirubin (0.2-1) mg/dl AST (15-37) U/L ALT (12-78) U/L Alkaline Phosphatase (45-117) U/L Troponin I (0-0.045) ng/ml Total Protein (6.4-8.2) gm/dl Albumin (3.4-5.0) gm/dl Globulin (2.5-4.0) gm/dl Albumin/Globulin Ratio (0.9-2) Procalcitonin (0-0.5) ng/ml Urine Color Urine Appearance (Clear) Urine pH (4.5-7.5) Ur Specific Blachly (1.000-1.030) Urine Protein (Negative) Urine Glucose (UA) (Negative) Urine Ketones (Negative) Urine Blood (Negative) Urine Nitrite (Negative) Urine Bilirubin (Negative) Urine Urobilinogen (Negative) Ur Leukocyte Esterase (Negative) Urine WBC (Auto) (0-5) /hpf Urine RBC (Auto) (0-4) /hpf U Hyaline Cast (Auto) (0-5) /lpf U Epithel Cells (Auto) (0-5) /lpf Urine Bacteria (Auto) (Negative) COVID-19 Eval Order Covid19 at [facility] SARS-CoV-2 (PCR) NEGATIVE (Negative) Imaging Data My Impression: Chest x-ray negative. Airway clear. No pneumothorax. No consolidation. No cardiomegaly or cephalization.. No free air under the diaphragm. No fractures of the skeletal structures. Radiologist's Impression: PreliminaryFindingsOnly See Final Report For Complete Findings CT PELVIS: Tubular shaped, curvilinear peripheral enhancing fluid collection measures about 9 cmin length, with a diameter maximum2.4 cm, is concerning for abscess. This extends fromthe base of the penis and courses serpiginouslythrough the subcutaneous fat of the perineum, fairlymidline, terminating nearer to the scrotal junction, rather than the perianal soft tissues. This is remote fromthe spermatic cord and epididymis, exact etiologynot ascertained, mayhave arisen froma skin lesion. Moderate bilateral hydroceles. No intraperitoneal involvement. Radiologist: Juana Buckley M.D. Study ready at 22:07 and initial results transmitted at 22:18 MDM Narrative 2019: The patient was evaluated in room C2. A complete history and physical exam was performed Cardiac monitoring: An order was placed for continuous cardiac monitoring. The monitor shows a rate of 110 with sinus tachycardia rhythm Patient is febrile and tachycardic with a likely source of infection being a likely perineal abscess. Sepsis protocols were initiated. 2246: Labs show leukocytosis of 14. CT of the pelvis does show a tubular shaped peripheral enhancing fluid collection measuring 9 cm in length with a maximum diameter of 2.4 cm concerning for abscess. It extends from the base of the penis and courses Sarapin Nissley through the subcutaneous fat of the perineum fairly midline terminating near to the scrotal junction rather than the perianal soft tissues. Discussed the case with urology who the patient is known to. Spoke with Pito Lara PA-C for Dr. Hodgson urology. He states to admit to medicine and he will evaluate the patient. 0000: Patient admitted to medicine and urology taking patient to the OR. Impression & Plan Abscess of perineum, Sepsis Discharge Plan Visit Data Chief Complaint: Infection Stated Complaint: INFECTION, FEVER Discharge Problem: Abscess of perineum, Sepsis Patient Disposition: Admitted As Inpatient Forms Stand Alone Forms: [facility] Prescriptions Prescriptions: No Action nystatin 100,000 unit/gram cream 1 applic TOP BID Qty: 15 RF: 4 betamethasone dipropionate 0.05 % cream 1 applic topical BID Qty: 15 RF: 2 sulfamethoxazole-trimethoprim [Bactrim DS] 800-160 mg tablet 1 tab PO BID 10 Days Qty: 20 RF: 0 pantoprazole [address] for susp in packet 40 mg PO Q OTHER DAY RF: 0 famotidine [Acid Bead Wire Insulator (famotidine)] 20 mg tablet 20 mg PO QAM RF: 0 ferrous fumarate 325 mg (106 mg iron) tablet 325 mg PO HS RF: 0 metformin 1,000 mg tablet 1,000 mg PO BID RF: 0 atorvastatin 20 mg tablet 20 mg PO QPM RF: 0 tadalafil 5 mg tablet 18.5 mg PO DAILY Qty: 30 RF: 11 metoprolol tartrate 50 mg Tablet 50 mg PO QPM RF: 0 metoprolol tartrate 50 mg Tablet 100 mg PO QAM RF: 0 cetirizine 10 mg Tablet 10 mg PO QAM RF: 0 lisinopril 2.5 mg Tablet 2.5 mg PO HS RF: 0 Ozempic 0.25 mg or 0.5 mg(2 mg/1.5 mL) Pen Injector 0.5 mg SUBCUT WK RF: 0 ibuprofen 200 mg Tablet 200 mg PO Q6H PRN (Reason: Pain) RF: 0 Referrals Referrals: Robinson Jean [Primary Care Provider] -
[2021-06-29] MEDS ORDERED: BUPIVACAINE 0.5 % 5 MG/1 ML MPF 30ML VIAL ONE (00:02)
[2021-06-29] MEDS ORDERED: VANCOMYCIN HCL 1000MG/20ML VIAL ONE (00:30)
[2021-06-29] MEDS: BACITRACIN OINT 15 GM TUBE ONE ×2 (00:45→00:53)
[2021-06-29] MEDS ORDERED: PROPOFOL IV EMULSION 10 MG/ML 20 ML VIAL IV ONE (00:53)
--- NOTE | 2021-06-29 01:06 | Operative Report ---
PG Post Operative Report Pre & Post Diagnosis Operation Date: 06/28/21 23:30 Pre-Op Diagnosis: INFECTION, FEVER, Abscess Post-Op Diagnosis: INFECTION, FEVER, Abscess I identified the patient and participated in the time-out.: Yes Procedure Operation Date: 06/28/21 23:30 Actual Procedures p Incision and Drainage of Perineal Abscess with debridement (Not Applicable) - Otoniel Hodgson DO Surgeon Otoniel Hodgson, II, DO Sustainment Logistics Analyst Pito Lara PA-C Estimated Blood Loss 10 Findings Consistent with Post-Op Diagnosis Extremely large abscess tracking along the left side along the deep penile ti ssues and into the left inguinal region. Significant amount of thickened loculations. Abscess also tracked posteriorly to perirectal tissues. While probing wound a YUMIKO was completed and no obvious connections were noted. Scrotum with edema and likely cellulitis but no tracking of abscess into scrotum or scrotal tissue. Elliptical Incision opening 4.1 cm x 2.5 cm. Abscess cavity 11.7 cm deep to left inguinal region. 6.3 cm in width. 7.6 cm in length. Deep/posterior 5.8 cm Specimens Abscess Fluid Abscess Swab Deep Tissue Culture Perineal abscess Drains Kerlix Packing 18 Fr Silicon Lang Anesthesia Type General Complications none Disposition Disposition: Recovery Room Indications Large Perineal/Groin fluid collection consistent with abscess. Septic with hypotension, fever, and tachycardia. Plan for urgent incision and drainage. Risks and benefits discussed at length. Description of Procedure Patient was consented and brought back to the operating room. Emergent/Urgent issue with need for acute intervention. Patient was placed under anesthesia in the supine position. Patient was prepped and draped in the regular sterile fashion. A time out was completed. With the time out completed and the patient prepped, the perineal abscess was assessed and marked and local injected into the subcutaneous tissues. A 18 Fr lang was placed due to location of abscess near the base of the penile tissues on imaging. An elliptical incision was made with a scalpel and the abscess cavit y entered. An aspiration was completed. A tissue swab was then completed. These were sent for culture. The abscess was flushed with saline and saline infused with vancomycin. The cavity was then probed. Extremely thick loculations and multiple pockets were discovered. These were broken up and purulent material was drained. The base of the penile tissue with the lang in place was assessed. No disruption was discovered. Deep necrotic tissue was dissected and removed. A portion of the tissue was sent for deep tissue culture. The scrotum was found to be edematous and likely cellulitis, but no abscess formation or tracking. The cavity was irrigated multiple times with the solution. Throughout the entire case Pito Lara PA-C assisted. Was critical during the procedure and washout. A YUMIKO was completed by Marco while the wound was probed. The abscess did track to the perirectal space but no obvious connections or disruption of the rectal tissue was discovered. No significant bleeding. Other than the necrotic appearing and chronically inflammed fat and abscess cavity tissues, there were no major areas of further necrosis. The tissue appeared viable. Additional flushes were completed. The wound was then packed with the Kerlix packing which had been soaked in the saline/vancomycin solution. The area was cleaned. Dressing was placed. A scrotal support was placed with dressings for support. The patient was cleaned, aroused from anesthesia, and transferred to the pacu in stable condition having tolerated the procedure well with no complications. I was present and participated in all aspects of the procedure. Will need monitoring and supportive care. Continue broad spectrum antibiotics. Medical and diabetic management to assist in managing wound healing. Will need wound care referral for outpatient wound care. Will likely remove packing in Approx 24 hours. Will need packing with iodoform and irrigation with saline until healed by secondary intent. I attest to the content of the Intraoperative Record and any orders documented therein. Any exceptions are noted below.
--- NOTE | 2021-06-29 01:14 | Anesthesiology Progress Note ---
Date of Service June 29, 2021 Anesthesia Post Procedure Vital Signs Vital Signs: Temp Pulse Pulse Resp BP BP Pulse Ox 06/29/21 00:03 98.6 F 94 H 18 111/59 L 98 06/28/21 22:36 102 H 16 111/69 96 06/28/21 20:49 96 06/28/21 20:08 101.5 F H 106 H 20 99/54 L 93 Transfer of Care Handoff Completed per policy Notes Mental Status: alert / awake / arousable and participated in evaluation Patient Amnestic to Procedure: Yes Nausea / Vomiting: adequately controlled Pain: adequately controlled Airway Patency, RR, SpO2: stable & adequate BP & HR: stable & adequate Hydration State: stable & adequate Anesthetic Complications: no major complications apparent and Pt Satisfied with anesthetic care
[2021-06-29] MEDS ORDERED: MoRPHine SULFATE 4 MG/ML 1 ML CARP\\VIAL IV PRN (02:25)
[2021-06-29] MEDS ORDERED: ONDANSETRON INJ 2 MG/ML 2 ML VIAL IV PRN (02:25)
[2021-06-29] MEDS ORDERED: VANCOMYCIN CONSULT ACTIVE PRN (02:28)
[2021-06-29] MEDS ORDERED: PIPERACILL/TAZOBAC CONSULT ACTIVE PRN (02:28)
[2021-06-29] MEDS ORDERED: POLYETHYLENE (MIRALAX) 17 GM PACK PO PRN (02:28)
[2021-06-29] MEDS ORDERED: VANCOMYCIN HCL 1,000 MG in SODIUM CHLORIDE 0.9% 250 ML IV SCH (02:30)
[2021-06-29] MEDS ORDERED: GLUCOSE 10 TABS/TUBE PO PRN (02:54)
[2021-06-29] MEDS ORDERED: CARBOHYDRATES FOR HYPOGLYCEMIA PO PRN (02:54)
[2021-06-29] MEDS ORDERED: GLUCAGON FOR INJ 1 MG VIAL SQ PRN (02:54)
[2021-06-29] MEDS ORDERED: GLUCOSE 40% GEL 15 GM TUBE PO PRN (02:54)
[2021-06-29] MEDS ORDERED: DEXTROSE 50% 50 ML SYRINGE IV PRN (02:54)
[2021-06-29] MEDS: PIPERACILLIN/TAZOBACTAM 4.5 GM in DEXTROSE 5% 100 ML IV SCH ×3 (04:01→21:06)
--- NOTE | 2021-06-29 04:39 | Pharmacy Report ---
Pharmacy Abx Initial Consult - Date of Service June 29, 2021 - Pharmacy Dosing Scope Date of Consult: 06/29/21 Consultation requested by: Dr. Hodgson Pharmacy is consulted to initiate VANCOMYCIN and ZOSYN IV dosing therapy, order appropriate labs and adjust drug dose/frequency. - Subjective The patient is a 50 year old M admitted on 06/29/21 00:06. - Objective Height: 6 ft 2 in Weight: 134 kg Vital Signs (Past 12hrs): Vital Signs Temp Pulse Pulse Resp BP BP Pulse Ox 06/29/21 03:59 36.8 C 88 18 116/64 93 06/29/21 03:37 36.5 C 85 18 112/74 93 06/29/21 03:15 36.8 C 83 16 106/68 91 06/29/21 03:00 36.8 C 82 18 107/67 92 06/29/21 02:48 36.6 C 83 18 108/69 92 06/29/21 02:34 37.0 C 79 18 107/65 90 06/29/21 02:00 36.8 C 83 24 108/67 92 06/29/21 01:50 85 19 105/57 L 93 06/29/21 01:45 87 21 111/61 93 06/29/21 01:40 87 20 102/56 L 96 06/29/21 01:35 85 18 107/61 97 06/29/21 01:30 91 H 23 111/59 L 97 06/29/21 01:25 91 H 22 110/65 97 06/29/21 01:20 91 H 19 104/59 L 99 06/29/21 01:15 91 H 22 110/65 97 06/29/21 01:10 37.2 C 98 H 27 H 102/60 92 06/29/21 00:03 37.0 C 94 H 18 111/59 L 98 06/28/21 22:36 102 H 16 111/69 96 06/28/21 20:49 96 06/28/21 20:08 38.6 C H 106 H 20 99/54 L 93 Lab Results (24hrs): Laboratory Tests (24 Hours) 06/28/21 06/28/21 06/28/21 20:45 20:45 20:45 WBC 14.34 H Neut # (Auto) 11.79 H Creatinine 1.33 Est Cr Clr Drug Dosing 96.4 Procalcitonin 0.08 Micro Results: 06/29/21 Unknown Gram Stain - Pending Scrotum Aerobic and Anaerobic Culture - Pending 06/28/21 21:31 Aerobic Blood Culture - Pending Blood Anaerobic Blood Culture - Pending 06/28/21 20:45 Aerobic Blood Culture - Pending Blood Anaerobic Blood Culture - Pending - Assessment & Plan Assessment 50 year old M admitted for I&D of recurrent perineal abscess. Broad spectrum coverage with Vanc + Zosyn. Plan Vancomycin IV * Estimated PK Parameters: Arash ~0.084 hr-1, t1/2 ~9 hr * Loading dose: 2750mg (~21 mg/kg) * Maintenance dose: 1750mg IV (~13 mg/kg) every 12 hours * Goal trough level for SST : 15 to 20 mcg/mL * Trough/Random level will be ordered once at [facility]. Piperacillin/tazobactam * 4.5g bolus administered over 30 minutes, then 4.5g IV extended infusion every 8 hours for CrCl greater than 20 mL/min. * Aggressive dosing selected due to critically ill status/BMI 35 or more/history of cystic fibrosis. Pharmacy will continue to follow and will adjust dose/frequency as necessary. Thank you.
[2021-06-29] MEDS: ACETAMINOPHEN 325 MG TAB PO PRN ×3 (06:00→18:49)
--- NOTE | 2021-06-29 06:56 | XRay Report ---
XR chest 1V portable HISTORY: 50 years-old Male SEPSIS acute sepsis COMPARISON: Chest radiograph 09/22/2020 TECHNIQUE: Portable AP view of the chest FINDINGS: Cardiac silhouette is enlarged. Mild right hemidiaphragmatic elevation. Mild left lung subsegmental o pacities. No pneumothorax or overt pulmonary edema. Bone island of the posterior right fifth rib donald elating with the subcentimeter nodular opacity projecting over the right upper lung redemonstrated. D egenerative changes of the shoulders and spine. IMPRESSION: Mild left lung base opacities suggestive of probable atelectasis. ACT 112: Negative or not required by law. The above report was generated using voice recognition software. It may contain grammatical, syntax o r spelling errors. Electronically signed by: Zane Mistry M.D. 06/29/2021 6:54 AM
[2021-06-29 07:40] LABS: Estimated Average Glucose 123 mg/dl; Hemoglobin A1C 5.9 % (4.5-5.6)
[2021-06-29] MEDS: INSULIN ASPART 100 UNITS/ML 3 ML PEN SC SCH ×4 (08:28→21:30)
--- NOTE | 2021-06-29 09:30 | Hospitalist Progress Note ---
Date of Service June 29, 2021 Assessment & Plan (1) Perineal abscess: Plan: Junior Jha is a 50-year-old male with PMH of DM2, HTN, psoriasis, GERD, recurrent perineal infections who was admitted for treatment of perineal abscess. 1. Sepsis secondary to Perineal Abscess - SIRS criteria met on admission with fever > 38C, tachycardia >90, WBC > 12 - CT Pelvis: Tubular shaped, curvilinear peripheral enhancing fluid collection 9 x2.4cm abscess from base of penis to scrotal junction. - s/p I&D in OR by urology--follow further recs - Plan to remove surgical packing after 24 hours per Operative note - Maintain lang cath - Patient improving significantly since I&D in terms of symptoms, though he has remained tachycardic and had an episode of fever today - Continue to monitor for signs of worsening--consider additional pseudomonal coverage if patient plateaus or worsens - Continue vanc and zosyn for MRSA and gram neg/anerobic coverage - Wound culture done in OR--showing no organisms on gram stain, aero/anaero culture pending - Blood Culture pending - Trend CBC in AM 2. DM2 - A1c 5.9 (06/29) - SSI--patient refusing insulin as of 06/29 as he finds his BSG to be well controlled and does not believe he needs one unit of insulin - Explained utility of SSI while in the inpatient setting; patient verbalizes understanding but continues to refuse insulin - Expresses he will agree to it if sugars are uncontrolled 3. HTN - Currently holding home lisinopril as well as metoprolol - Has had stable BP - As above tachycardic in the setting of sepsis - Continue to hold all meds until he is no longer clinically suspicious/in danger of septic shock 4. GERD - Protonix 40mg daily DVT ppx: SCDs FEN/GI: dm2 diet Code status: full code dispo: Tele (2) Diabetes: Admission and Anticipated Discharge Date Admission Date: June 29, 2021 Supervising Physician Co-Signing Physician Notes I personally examined the patient and verified all gerber points of history and exam, discussed case, and agree with decision making with Dr Espinal. Feeling better. Did have pain with dressing change but no pain at rest. Notes a bit of a coughfeels in the back of his throat more than anything, notes that he had it worsen around the time that he started with a scrotal cellulitis. He also notes that this happened when he had anaplasmosis earlier in the spring. Incidentally apparently had infected tonsils requiring removal in March. No other new complaints otherwise. Vitals noted, in general he is awake and alert pleasant no distress. HEENT normocephalic atraumatic mucous membranes are moist. Breathing unlabored no accessory muscle usehe does have a bit of an upper airway sounding reasonably dry cough. Neuro without focal deficits. Skin without rashes/pallor/icterus Perineal/probable scrotal cellulitis with abscess and sepsis present on admissionfairly ill with a very high risk infectioncontinue Sulaiman and Laurie pending further improvement and culture results. Continue supportive care. Suspect cough is reflux relatedhe notes that he has reflux fairly routinely, and while he doesn't have worsening notable reflux symptoms right now, we both felt it quite plausible that the physiologic stress of infection would worsen the refluxespecially given no other clear cause of the cough. We also discussed with the psoriasis that the biologic that he is on is giving us both rather significant concern that it is causing this string of infections he has hadwhile certainly things could've simply taken place randomly, he notes that other than having multiple ear infections as a child, he is not really prone to much as far as infections. He does have diabetes, and certainly that could set him up for infection, but it seems far less plausible given that he is under very good control. 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 Otherwise as above. Subjective Patient seen at bedside this AM. No acute events overnight after his I&D. Reports feeling much better than when he initially came in. Still feeling a bit tired and feeling some chills intermittently. Says Tylenol helped with that. No fever since 8PM last night. Review of Systems Review of Systems: per HPI Physical Exam Physical Exam: Constitutional: obese, sitting comfortably in bed Cardiac: RRR, no murmurs, gallops or rubs. Normal S1, S2 Pulmonary: CTAB, no wheezes, rhonchi, crackles or rubs, no labored breathing Abd: soft, NTND, normal bowel sounds : deferred by patient preference Extremities: 2+ peripheral pulses, no edema Neuro: A&Ox3, No FND Results & Data Results & Data ([facility]) Vital Signs (Past 12 Hours) Vital Signs Temp Pulse Pulse Resp BP BP Pulse Ox 06/29/21 07:11 102 H 06/29/21 07:00 37.4 C 100 H 20 109/59 L 94 06/29/21 05:51 37.4 C 97 H 18 127/74 94 06/29/21 05:20 86 06/29/21 05:09 37.1 C 93 H 16 113/71 93 06/29/21 03:59 36.8 C 88 18 116/64 93 06/29/21 03:37 36.5 C 85 18 112/74 93 06/29/21 03:15 36.8 C 83 16 106/68 91 06/29/21 03:00 36.8 C 82 18 107/67 92 06/29/21 02:48 36.6 C 83 18 108/69 92 06/29/21 02:34 37.0 C 79 18 107/65 90 06/29/21 02:00 36.8 C 83 24 108/67 92 06/29/21 01:50 85 19 105/57 L 93 06/29/21 01:45 87 21 111/61 93 06/29/21 01:40 87 20 102/56 L 96 06/29/21 01:35 85 18 107/61 97 06/29/21 01:30 91 H 23 111/59 L 97 06/29/21 01:25 91 H 22 110/65 97 06/29/21 01:20 91 H 19 104/59 L 99 06/29/21 01:15 91 H 22 110/65 97 06/29/21 01:10 37.2 C 98 H 27 H 102/60 92 06/29/21 00:03 37.0 C 94 H 18 111/59 L 98 06/28/21 22:36 102 H 16 111/69 96 Resident Activity Tracking Resident Involvement: Resident Care Provided Care Provided: Adult Hospital Medicine
--- NOTE | 2021-06-29 09:38 | Urology Progress Note ---
Date of Service June 29, 2021 Assessment & Plan (1) Perineal abscess: Plan: 50yo M who was admitted with fever and chills secondary to a perineal abscess - Patient is s/p Incision and Drainage of Perineal Abscess with debridement by Dr. Hodgson. - Feeling better this morning, minimal pain. - He is afebrile - Tmax 38.6 yesterday - Labs reviewed, Wbc 14.34, Hgb 13.0, creatinine 1.33 - Blood cultures pending - Scrotal tissue wound culture done in OR--showing no organisms on gram stain, Aero/Chacha Cult pending - Maintain lang catheter - Scrotal dressing and support sling intact. - Wound care consult placed. - Continue supportive care and antibiotic therapy, follow cultures - Will continue to follow Admission and Anticipated Discharge Date Admission Date: June 29, 2021 Subjective Pt examined at bedside this AM. Awake, resting in bed on arrival. Feeling better today. Reports scrotal discomfort, rates pain 1/10. Managing with Tylenol. No fevers since 8PM last evening. He reports occasional chills. No nausea or vomiting. Lang catheter intact, draining clear yellow urine. Review of Systems Constitutional: as per Subjective / HPI Gastrointestinal: as per Subjective / HPI Genitourinary: + as per Subjective / HPI Physical Exam Constitutional: well developed and well nourished; no acute distress Respiratory: normal respiratory effort; no labored breathing and no audible wheezes Gastrointestinal (Abdomen): Inspection/Auscultation: abdomen normal to inspection Neurologic: awake Psychiatric: Orientation: alert, oriented x 3 and cooperative Genitourinary: Lang catheter intact. Scrotal edema and tenderness noted on exam. Dressing/suspensory sling intact to scrotum. Results & Data ([facility]) Vital Signs (Past 12 Hours) Vital Signs Temp Pulse Pulse Resp BP BP Pulse Ox 06/29/21 07:11 102 H 06/29/21 07:00 37.4 C 100 H 20 109/59 L 94 06/29/21 05:51 37.4 C 97 H 18 127/74 94 06/29/21 05:20 86 06/29/21 05:09 37.1 C 93 H 16 113/71 93 06/29/21 03:59 36.8 C 88 18 116/64 93 06/29/21 03:37 36.5 C 85 18 112/74 93 06/29/21 03:15 36.8 C 83 16 106/68 91 06/29/21 03:00 36.8 C 82 18 107/67 92 06/29/21 02:48 36.6 C 83 18 108/69 92 06/29/21 02:34 37.0 C 79 18 107/65 90 06/29/21 02:00 36.8 C 83 24 108/67 92 06/29/21 01:50 85 19 105/57 L 93 06/29/21 01:45 87 21 111/61 93 06/29/21 01:40 87 20 102/56 L 96 06/29/21 01:35 85 18 107/61 97 06/29/21 01:30 91 H 23 111/59 L 97 06/29/21 01:25 91 H 22 110/65 97 06/29/21 01:20 91 H 19 104/59 L 99 06/29/21 01:15 91 H 22 110/65 97 06/29/21 01:10 37.2 C 98 H 27 H 102/60 92 06/29/21 00:03 37.0 C 94 H 18 111/59 L 98 06/28/21 22:36 102 H 16 111/69 96 PG Care Time/CCT Total # of Minutes Spent Total Time Spent with Patient: Total time spent is greater than 50% in coordination of care (as documented) at patient's floor/unit and/or counseling patient: Coding Level of Care Code 03725 Subseq Hosp Care Lvl 2 Diagnoses Perineal abscess L02.215
--- NOTE | 2021-06-29 10:13 | CT Scan Report ---
CT pelvis w/IV con only HISTORY: 50 years-old Male perineal abscess and scrotal redness COMPARISON: None TECHNIQUE: Multiple axial CT images of the pelvis were obtained following the intravenous ministratio n of 94 mm Optiray 320. A dose lowering technique was used consistent with the principals of STAR. FINDINGS: No pneumatosis or pneumoperitoneum. No abdominal aortic aneurysm. Enlarged bilateral inguinal chain l ymph nodes measure up to 1.2 cm on the left and 1.4 cm on the right. Mild colonic diverticulosis. No bowel obstruction or bowel wall thickening. Stool-filled nondilated ileum within the abdominal right lower quadrant. Nonvisualization of the appendix. Unremarkable urinary bladder. The enlarged prostate . There is a peripherally enhancing fluid collection and with surrounding inflammatory stranding involv ing the left paracentral to midline perineum extending from the base of the penis into the volar tiss ues adjacent to the hemiscrotum measuring up to approximately 11 cm in length by 3.7 x 2.4 cm. This m ay be contiguous with a skin lesion on the scrotum. Scrotal wall thickening is also present. No acute fracture. Degenerative changes of the spine. IMPRESSION: 1. Perineal abscess measuring up to 11 cm in length extends from the base of the penis into the volar tissues adjacent to the scrotum. There is associated mild to moderate cellulitis. 2. No intrapelvic extension or acute intrapelvic abnormality. ACT 112: Negative or not required by law. The above report was generated using voice recognition software. It may contain grammatical, syntax o r spelling errors. Electronically signed by: Zane Mistry M.D. 06/29/2021 10:11 AM
[2021-06-29] MEDS: VANCOMYCIN HCL 1,750 MG in SODIUM CHLORIDE 0.9% 500 ML IV SCH (10:56)
[2021-06-29] MEDS: ACETAMINOPHEN 1,000 MG/100 ML VIAL IV PRN (13:45)
--- NOTE | 2021-06-29 16:58 | Electrocardiogram Report ---
Test Reason : Blood Pressure : / mmHG Vent. Rate : 105 BPM Atrial Rate : 105 BPM P-R Int : 160 ms QRS Dur : 092 ms QT Int : 312 ms P-R-T Axes : 020 031 -10 degrees QTc Int : 412 ms Sinus tachycardia Poor R wave progression, consider anterior OR vs. lead placement vs. LVH Abnormal ECG When compared with ECG of 22-SEP-2020 08:36, Questionable change in QRS axis ST no longer elevated in Lateral leads Confirmed by Gordo Valdes ([id number]) on 06/29/2021 4:58:20 PM Referred By: Raj Flood Confirmed By:Gordo Valdes
--- NOTE | 2021-06-29 17:04 | Billing Data ---
Date of Service June 29, 2021 Coding Level of Care Code 96186 Subseq Hosp Care Lvl 3
--- NOTE | 2021-06-29 20:08 | Billing Data ---
Date of Service June 29, 2021 Coding Level of Care Code 53424 Initial Inpt Care Lvl 3
[2021-06-29] MEDS ORDERED: METOPROLOL TARTRATE 50 MG TAB PO SCH (21:00)
[2021-06-30] MEDS: ACETAMINOPHEN 325 MG TAB PO PRN ×2 (00:42→08:37)
[2021-06-30] MEDS: VANCOMYCIN HCL 1,750 MG in SODIUM CHLORIDE 0.9% 500 ML IV SCH ×2 (01:30→11:48)
[2021-06-30] MEDS: PIPERACILLIN/TAZOBACTAM 4.5 GM in DEXTROSE 5% 100 ML IV SCH ×3 (05:00→21:36)
[2021-06-30 07:17] LABS: Basophils # (auto) 0.01 K/uL (0-0.2); Basophils % (auto) 0.1 %; Eosinophils # (auto) 0.24 K/uL (0-0.5); Eosinophils % (auto) 2.8 %; Hematocrit (blood only) 36.7 % (42-52); Hemoglobin 12.2 g/dL (14.0-18.0); Immature Granulocytes # (auto) 0.02 K/uL (0.00-0.02); Immature Granulocytes % (auto) 0.2 %; Lymphocytes # (auto) 0.86 K/uL (1.2-3.4); Lymphocytes % (auto) 9.9 %; Mean Corpuscular Hemoglobin 25.4 pg (25-34); Mean Corpuscular Hgb Conc 33.2 g/dL (32-36); Mean Corpuscular Volume 76.5 fL (80-100); Mean Platelet Volume 9.1 fL (7.4-10.4); Monocytes # (auto) 0.71 K/uL (0.11-0.59); Monocytes % (auto) 8.1 %; Neutrophils # (auto) 6.88 K/uL (1.4-6.5); Neutrophils % (auto) 78.9 %; Platelet Count 174 K/uL (130-400); RDW Coefficient of Variation 14.7 % (11.5-14.5); RDW Standard Deviation 41.4 fL (36.4-46.3); White Blood Count 8.72 K/uL (4.8-10.8)
[2021-06-30 07:54] LABS: BUN Creatinine Ratio 9.3 (10-20); Calcium 8.4 mg/dl (8.5-10.1); Creatinine Clr Calc Pharmacy 131.3 ml/min; Est GFR (African American) 103.8 ml/min; Est GFR (Non-African American) 89.5 ml/min; Potassium 3.6 mmol/L (3.5-5.1)
[2021-06-30] MEDS: PANTOprazole 40 MG TAB PO SCH (08:37)
[2021-06-30] MEDS: INSULIN ASPART 100 UNITS/ML 3 ML PEN SC SCH ×4 (08:40→21:51)
[2021-06-30] MEDS ORDERED: METOPROLOL TARTRATE 100 MG TAB PO SCH (09:00)
--- NOTE | 2021-06-30 09:24 | Hospitalist Progress Note ---
Date of Service June 30, 2021 Assessment & Plan (1) Perineal abscess: Plan: Junior Jha is a 50-year-old male with PMH of DM2, HTN, psoriasis, GERD, recurrent perineal infections who was admitted for treatment of perineal abscess. 1. Sepsis secondary to Perineal Abscess - SIRS criteria met on admission with fever > 38C, tachycardia >90, WBC > 12 - CT Pelvis: Tubular shaped, curvilinear peripheral enhancing fluid collection 9 x2.4cm abscess from base of penis to scrotal junction. - s/p I&D in OR by urology--follow further recs - Maintain Mitchell catheter. - Continue dressing changes with wound care nursing. - Will need home health set up for wound management after discharge. - Patient improving significantly since I&D in terms of symptoms--tachycardia resolved today, fever with Tmax 38C last night 2200 - Continue to monitor for signs of worsening--consider additional pseudomonal coverage if patient plateaus or worsens - Wound culture done in OR--showing no organisms on gram stain, aero/anaero culture growing Group B Beta Strep (sensitivities pending) - Stop vancomycin today as culture growing Group B Beta Strep--continue Zosyn - Plan for likely transition to Augmentin at DC - Blood Culture NGTD - Trend CBC in AM 2. DM2 - A1c 5.9 (06/29) - SSI--patient refusing insulin as of 06/29 as he finds his BSG to be well controlled and does not believe he needs one unit of insulin - Explained utility of SSI while in the inpatient setting; patient verbalizes understanding but continues to refuse insulin - Expresses he will agree to it if sugars are uncontrolled - BSG have remained well-controlled 3. HTN - Currently holding home lisinopril as well as metoprolol - Has had stable BP - Continue to hold all meds until he is no longer clinically suspicious/in danger of septic shock 4. GERD - Protonix 40mg daily DVT ppx: SCDs FEN/GI: dm2 diet Code status: full code dispo: Tele (2) Diabetes: Admission and Anticipated Discharge Date Admission Date: June 29, 2021 Supervising Physician Co-Signing Physician Notes I personally examined the patient and verified all gerber points of history and exam, discussed case, and agree with decision making with Dr Espinal. Overall feeling good. No significant pain except for with dressing changes, and may be a little bit with movement, but notes overall quite well-tolerated. Would like to go home once possiblepleased with the thought that this might be tomorrow. Vitals noted, in general he is awake and alert pleasant no distress. HEENT normocephalic atraumatic mucous membranes are moist. Breathing unlabored no accessory muscle use good effort. Neuro without focal deficits. Skin without rashes/pallor/icterus Perineal/probable scrotal cellulitis with abscess and sepsis present on admissionfortunately improvingand with strep on cultureagree it appears safe to stop the vancomycin. Continue Zosyn for now, anticipate transition to p.o. Augmentin at time of discharge. Continue supportive care. Suspect cough is reflux related. Yesterday we also discussed with the psoriasis that the biologic that he is on is giving us both rather significant concern that it is causing this string of infections he has hadwhile certainly things could've simply taken place randomly, he notes that other than having multiple ear infections as a child, he is not really prone to much as far as infections. He does have diabetes, and certainly that could set him up for infection, but it seems far less plausible given that he is under very good control. 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 Subjective Patient seen at bedside. Having breakfast comfortably. Reports only some chills overnight. Overall improving and feels well in general. No n/v, diarrhea, CP, palp, abd pain, SOB. Review of Systems Review of Systems: Per HPI Physical Exam Physical Exam: Constitutional: obese, sitting comfortably in bed Cardiac: RRR, no murmurs, gallops or rubs. Normal S1, S2 Pulmonary: CTAB, no wheezes, rhonchi, crackles or rubs, no labored breathing Abd: soft, NTND, normal bowel sounds : deferred by patient preference Extremities: 2+ peripheral pulses, no edema Neuro: A&Ox3, No FND Results & Data Results & Data ([facility]) Vital Signs (Past 12 Hours) Vital Signs Temp Pulse Pulse Resp BP Pulse Ox 06/30/21 08:16 36.5 C 93 H 16 132/81 92 06/30/21 08:00 36.3 C L 108 H 22 130/77 94 06/30/21 07:25 102 H 06/30/21 03:06 37 C 89 16 122/74 93 06/30/21 00:00 97 H 06/29/21 22:09 38 C H 102 H 20 116/67 92 Resident Activity Tracking Resident Involvement: Resident Care Provided Care Provided: Adult Hospital Medicine
--- NOTE | 2021-06-30 10:11 | Urology Progress Note ---
Date of Service June 30, 2021 Assessment & Plan (1) Perineal abscess: Plan: 50yo M who was admitted with fever and chills secondary to a perineal abscess. - Patient is POD #2 s/p Incision and Drainage of Perineal Abscess with debridement by Dr. Hodgson. - Feeling better this morning, minimal pain. - He is afebrile - Tmax 38.0C yesterday evening (06/29 @2200). - Labs reviewed, WBC improved to 8.72, Hgb 12.2, creatinine 0.98. - Blood cultures no growth x 24 hours - Scrotal tissue wound culture done in OR--showing few WBCs, no organisms seen on gram stain, Aero/Chacha Cult pending. - Maintain Mitchell catheter. - Continue dressing changes with wound care nursing. - Will need home health set up for wound management after discharge. - Continue supportive care, antibiotic therapy, and management per primary service. - Will continue to follow. Admission and Anticipated Discharge Date Admission Date: June 29, 2021 Subjective Pt examined at bedside this AM. Awake, resting in bed on arrival. Feeling better today. Reports mild scrotal discomfort only with movement. Managing with Tylenol. No fevers since 2200 last evening (38.0C 06/29 @2200). He reports occasional chills and ill feelings. No nausea or vomiting. Generally tolerating Mitchell catheter - intact, draining clear yellow urine. Reports he had a BM this morning and feels better. He was seen by wound care nurses yesterday, dressing changed at that time. Review of Systems Constitutional: as per Subjective / HPI Gastrointestinal: as per Subjective / HPI Genitourinary: + as per Subjective / HPI Physical Exam Constitutional: well developed and well nourished; no acute distress and not ill appearing Respiratory: normal respiratory effort and able to speak in complete sentences; no respiratory distress and no labored breathing Cardiovascular: Extremities: no pedal edema Gastrointestinal (Abdomen): Inspection/Auscultation: abdomen normal to inspection; abdomen not distended Percussion/Palpation: abdomen soft; abdomen nontender and no guarding Musculoskeletal: Head/Neck/Chest: normocephalic and head atraumatic Neurologic: moves all extremities and awake Psychiatric: Orientation: alert and oriented x 3 Genitourinary: Mitchell intact and draining clear yellow urine. Scrotal edema and tenderness noted on exam. Scrotal wound packed with iodoform, no significant surrounding erythema. ABDs under wound with small amount of serosanguinous drainage. Results & Data ([facility]) Vital Signs (Past 12 Hours) Vital Signs Temp Pulse Pulse Resp BP Pulse Ox 06/30/21 08:16 36.5 C 93 H 16 132/81 92 06/30/21 08:00 36.3 C L 108 H 22 130/77 94 06/30/21 07:25 102 H 06/30/21 03:06 37 C 89 16 122/74 93 06/30/21 00:00 97 H PG Care Time/CCT Total # of Minutes Spent Total Time Spent with Patient: Total time spent is greater than 50% in coordination of care (as documented) at patient's floor/unit and/or counseling patient: Coding Level of Care Code 63624 Subseq Hosp Care Lvl 2 Diagnoses Perineal abscess L02.215
[2021-06-30] MEDS ORDERED: VANCOMYCIN TROUGH ONE (10:30)
--- NOTE | 2021-06-30 15:24 | Pharmacy Report ---
Pharmacy Abx Dose Short Note - Date of Service June 30, 2021 - Assessment & Plan Assessment 50 year old M receiving vancomycin/zosyn for perineal abscess. Today is day 3 of therapy Plan Vancomycin * Trough level came back at ~9.2 mcg/ml (goal 10-15 mcg/ml post I&D) * Plan to continue same vancomycin dosing for now as not quite at steady state. Patient with higher BMI therefore anticipate he will accumulate over time * Renal function stable. Reached out to provider regarding possible deescalation. Scrotum with Group b strep Pharmacy will continue to follow and will adjust dose/frequency as necessary. Thank you.
--- NOTE | 2021-06-30 17:33 | Billing Data ---
Date of Service June 30, 2021 Coding Level of Care Code 50405 Subseq Hosp Care Lvl 3
[2021-06-30] MEDS: METOPROLOL TARTRATE 50 MG TAB PO SCH (17:44)
[2021-06-30] MEDS: ACETAMINOPHEN 1,000 MG/100 ML VIAL IV PRN (22:49)
[2021-07-01] MEDS: PIPERACILLIN/TAZOBACTAM 4.5 GM in DEXTROSE 5% 100 ML IV SCH ×3 (05:22→20:00)
[2021-07-01 06:53] LABS: Basophils # (auto) 0.02 K/uL (0-0.2); Basophils % (auto) 0.3 %; Eosinophils # (auto) 0.39 K/uL (0-0.5); Eosinophils % (auto) 5.7 %; Hematocrit (blood only) 38.1 % (42-52); Hemoglobin 12.5 g/dL (14.0-18.0); Immature Granulocytes # (auto) 0.02 K/uL (0.00-0.02); Immature Granulocytes % (auto) 0.3 %; Lymphocytes # (auto) 1.03 K/uL (1.2-3.4); Mean Corpuscular Hgb Conc 32.8 g/dL (32-36); Mean Corpuscular Volume 76.2 fL (80-100); Monocytes # (auto) 0.61 K/uL (0.11-0.59); Monocytes % (auto) 8.9 %; Neutrophils % (auto) 69.8 %; Platelet Count 184 K/uL (130-400); RDW Coefficient of Variation 14.6 % (11.5-14.5); RDW Standard Deviation 40.6 fL (36.4-46.3); White Blood Count 6.87 K/uL (4.8-10.8)
[2021-07-01 07:26] LABS: BUN Creatinine Ratio 10.1 (10-20); Creatinine Clr Calc Pharmacy 128.4 ml/min; Est GFR (African American) 102.5 ml/min; Est GFR (Non-African American) 88.4 ml/min; Potassium 3.7 mmol/L (3.5-5.1)
--- NOTE | 2021-07-01 08:37 | Discharge Summary ---
Date of Service July 01, 2021 Admission HPI Per Admitting Provider 50 yo M with hx recurrent perineal abscesses, psoriasis and diabetes in ER for repeat abscess formation. He is on tremfya for treatment of the psoriasis, and noticed that he usually gets these infections about 1 week after he gets the shot. States the pain is 0/10 when sitting still in bed, 4/10 when trying to adjust and move around the bed. Had a fever of 102 and chills at home. Discharge Data Allergies Allergy/AdvReac Type Severity Reaction Status Date / Time No Known Allergies Allergy Verified 06/28/21 21:22 Consultations 06/28/21 22:52 ED Decision to Admit Stat Procedures Performed Operation Date: 06/28/21 23:30 Actual Procedures p Incision and Drainage of Scrotal Abscess(Not Applicable) - Otoniel Hodgson DO Ordered Studies 06/28/21 20:26 CT pelvis w/IV con only Urgent Discharge Plan Discharge Items Reason For Visit: PERINEAL ABSCESS Follow-up/Referrals: Robinson Jean [Primary Care Provider] - Stand-Alone Forms: [facility] Medications and DC Order Prescriptions: No Action nystatin 100,000 unit/gram cream 1 applic TOP BID Qty: 15 RF: 4 betamethasone dipropionate 0.05 % cream 1 applic topical BID Qty: 15 RF: 2 sulfamethoxazole-trimethoprim [Bactrim DS] 800-160 mg tablet 1 tab PO BID 10 Days Qty: 20 RF: 0 pantoprazole [address] for susp in packet 40 mg PO Q OTHER DAY RF: 0 famotidine [Acid Plastic Fixture Builder (famotidine)] 20 mg tablet 20 mg PO QAM RF: 0 ferrous fumarate 325 mg (106 mg iron) tablet 325 mg PO HS RF: 0 metformin 1,000 mg tablet 1,000 mg PO BID RF: 0 atorvastatin 20 mg tablet 20 mg PO QPM RF: 0 tadalafil 5 mg tablet 18.5 mg PO DAILY Qty: 30 RF: 11 metoprolol tartrate 50 mg Tablet 50 mg PO QPM RF: 0 metoprolol tartrate 50 mg Tablet 100 mg PO QAM RF: 0 cetirizine 10 mg Tablet 10 mg PO QAM RF: 0 lisinopril 2.5 mg Tablet 2.5 mg PO HS RF: 0 Ozempic 0.25 mg or 0.5 mg(2 mg/1.5 mL) Pen Injector 0.5 mg SUBCUT WK RF: 0 ibuprofen 200 mg Tablet 200 mg PO Q6H PRN (Reason: Pain) RF: 0 Krames/Other Patient Handouts: A1C, High Blood Sugar (Hyperglycemia), Managing Type 2 Diabetes Admission Data Admit Date/Time: 06/29/21 00:06 Attending Provider: Waqas Braga Admit Provider: Eva Geiger Primary Care Provider: Robinson Jean Other Providers: Gregor Schafer ; Waqas Braga
[2021-07-01] MEDS: INSULIN ASPART 100 UNITS/ML 3 ML PEN SC SCH ×4 (08:41→20:00)
[2021-07-01] MEDS: PANTOprazole 40 MG TAB PO SCH (08:41)
[2021-07-01] MEDS: METOPROLOL TARTRATE 100 MG TAB PO SCH (08:45)
--- NOTE | 2021-07-01 11:10 | Urology Progress Note ---
Date of Service July 01, 2021 Assessment & Plan (1) Perineal abscess: Plan: 50yo M who was admitted with fever and chills secondary to a perineal abscess. - Patient is POD #3 s/p Incision and Drainage of Perineal Abscess with debridement by Dr. Hodgson. - Feeling well today, minimal pain. - He is afebrile - Tmax 38.0C yesterday (06/30 @2234). - Labs reviewed, WBC 6.87, Hgb 12.5, creatinine 0.99. - Blood cultures no growth x 48 hours - Scrotal tissue wound culture --showing few WBCs, no organisms seen on gram stain, Aero/Chacha Cult prelim Group B Beta Strep - Maintain Mitchell catheter for now -- OK to attempt voiding trial prior to discharge. - Will need home health set up for wound management after discharge. - Continue supportive care, antibiotic therapy, and management per primary service. - Will arrange outpatient follow-up with urology after discharge for continued care. - Thank you for allowing us to participate in the acute care of Mr. Jha. Please reconsult us with additional questions, concerns or changes in patient status. Admission and Anticipated Discharge Date Admission Date: June 29, 2021 Subjective Pt examined at bedside this AM. Awake, resting in bed on arrival. Reports mild scrotal discomfort mostly with movement. Managing with Tylenol. Denies fevers or chills at present -- Tmax 38.0 (06/30 at 2234). Tolerating diet, no nausea or vomiting. Generally tolerating Mitchell catheter - intact, draining clear yellow urine. Scrotal dressing changed by nursing yesterday. Mitchell output overnight - 1300ml Offers no additional complaints at time of exam Review of Systems Constitutional: as per Subjective / HPI Gastrointestinal: as per Subjective / HPI Genitourinary: + as per Subjective / HPI Physical Exam Constitutional: well developed and well nourished; no acute distress and not ill appearing Respiratory: normal respiratory effort and able to speak in complete sentences; no respiratory distress and no labored breathing Cardiovascular: Extremities: no pedal edema Gastrointestinal (Abdomen): Inspection/Auscultation: abdomen normal to inspection; abdomen not distended Musculoskeletal: Head/Neck/Chest: normocephalic and head atraumatic Neurologic: awake Psychiatric: Orientation: alert, oriented x 3 and cooperative Genitourinary: Mitchell intact and draining clear yellow urine. Scrotal edema and tenderness noted on exam. Scrotal wound packed with iodoform and covered with ABD dressing. No significant surrounding erythema. Results & Data ([facility]) Vital Signs (Past 12 Hours) Vital Signs Temp Pulse Pulse Resp BP Pulse Ox 07/01/21 07:36 36.6 C 79 16 158/84 H 91 07/01/21 07:08 89 07/01/21 00:00 89 06/30/21 22:34 38 C H 90 20 125/73 92 PG Care Time/CCT Total # of Minutes Spent Total Time Spent with Patient: Total time spent is greater than 50% in coordination of care (as documented) at patient's floor/unit and/or counseling patient: Coding Level of Care Code 34478 Subseq Hosp Care Lvl 2 Diagnoses Perineal abscess L02.215
--- NOTE | 2021-07-01 11:38 | Hospitalist Progress Note ---
Date of Service July 01, 2021 Assessment & Plan (1) Perineal abscess: Plan: Junior Jha is a 50-year-old male with PMH of DM2, HTN, psoriasis, GERD, recurrent perineal infections who was admitted for treatment of perineal abscess. 1. Sepsis secondary to Perineal Abscess - SIRS criteria met on admission with fever > 38C, tachycardia >90, WBC > 12 - CT Pelvis: Tubular shaped, curvilinear peripheral enhancing fluid collection 9 x2.4cm abscess from base of penis to scrotal junction. - s/p I&D in OR by urology--follow further recs - Maintain Mitchell catheter--void trial before DC - Continue dressing changes with wound care nursing. - Will need home health set up for wound management after discharge. - Patient improving significantly since I&D in terms of symptoms--tachycardia resolved today, fever with Tmax 38C last night 2200 - Continue to monitor for signs of worsening--consider additional pseudomonal coverage if patient plateaus or worsens - Wound culture done in OR--showing no organisms on gram stain, aero/anaero culture growing Group B Beta Strep (sensitivities pending) - Continue Zosyn--Wound Cx with Group B Beta Strep, pending sensitivities - Plan for likely transition to Augmentin at DC - Blood Culture NGTD - Trend CBC in AM 2. DM2 - A1c 5.9 (06/29) - SSI--patient refusing insulin as of 06/29 as he finds his BSG to be well controlled and does not believe he needs one unit of insulin - Explained utility of SSI while in the inpatient setting; patient verbalizes understanding but continues to refuse insulin - Expresses he will agree to it if sugars are uncontrolled - BSG have remained well-controlled 3. HTN - Currently holding home lisinopril as well as metoprolol - Has had stable BP - Continue to hold all meds until he is no longer clinically suspicious/in danger of septic shock 4. GERD - Protonix 40mg daily - Likely some contribution from reflux to his cough--has been on daily treatment for 2 days now - Continue for now and monitor DVT ppx: SCDs FEN/GI: dm2 diet Code status: full code dispo: Tele (2) Diabetes: Admission and Anticipated Discharge Date Admission Date: June 29, 2021 Supervising Physician Co-Signing Physician Notes I personally examined the patient and verified all gerber points of history and exam, discussed case, and agree with decision making with Dr Espinal. Had a fever again. Pain is improving. Hopeful for home tomorrow. Vitals noted, in general he is awake and alert pleasant no distress. HEENT normocephalic atraumatic mucous membranes are moist. Breathing unlabored no accessory muscle use good effort. Neuro without focal deficits. Skin without rashes/pallor/icterus Perineal/probable scrotal cellulitis with abscess and sepsis present on admissionfortunately improvingand with strep on cultureagree it appears safe to stop the vancomycin. Continue Zosyn for now, anticipate transition to p.o. Augmentin at time of discharge. Continue supportive care, and wound care. Suspect cough is reflux related. Previously we also discussed with the psoriasis that the biologic that he is on is giving us both rather significant concern that it is causing this string of infections he has hadwhile certainly things could've simply taken place randomly, he notes that other than having multiple ear infections as a child, he is not really prone to much as far as infections. He does have diabetes, and certainly that could set him up for infection, but it seems far less plausible given that he is under very good control. He is going to discuss alternative treatments with his home hospice rn after discharge. Subjective Patient seen at bedside this AM. Continues to feel slightly better overall. However, did have fever overnight around 10PM. He also reports a persistent cough, did admit to reflux that is feeling worse than usual at home. Otherwise no pain, no n/v, no diarrhea. Review of Systems Review of Systems: Per HPI Physical Exam Physical Exam: Constitutional: obese, sitting comfortably in bed Cardiac: RRR, no murmurs, gallops or rubs. Normal S1, S2 Pulmonary: CTAB, no wheezes, rhonchi, crackles or rubs, no labored breathing Psych: A&Ox3, euthymic affect, normal speech Results & Data Results & Data ([facility]) Vital Signs (Past 12 Hours) Vital Signs Temp Pulse Pulse Resp BP Pulse Ox 07/01/21 07:36 36.6 C 79 16 158/84 H 91 07/01/21 07:08 89 07/01/21 00:00 89 Resident Activity Tracking Resident Involvement: Resident Care Provided Care Provided: [facility] Medicine
--- NOTE | 2021-07-01 17:01 | Billing Data ---
Date of Service July 01, 2021 Coding Level of Care Code 74067 Subseq Hosp Care Lvl 2
[2021-07-01] MEDS: METOPROLOL TARTRATE 50 MG TAB PO SCH (20:02)
[2021-07-02] MEDS: PIPERACILLIN/TAZOBACTAM 4.5 GM in DEXTROSE 5% 100 ML IV SCH ×2 (04:04→11:51)
[2021-07-02 06:13] LABS: Basophils # (auto) 0.02 K/uL (0-0.2); Basophils % (auto) 0.3 %; Eosinophils # (auto) 0.44 K/uL (0-0.5); Eosinophils % (auto) 5.9 %; Hematocrit (blood only) 37.1 % (42-52); Hemoglobin 12.3 g/dL (14.0-18.0); Immature Granulocytes # (auto) 0.02 K/uL (0.00-0.02); Immature Granulocytes % (auto) 0.3 %; Lymphocytes % (auto) 14.7 %; Mean Corpuscular Hemoglobin 25.4 pg (25-34); Mean Corpuscular Hgb Conc 33.2 g/dL (32-36); Mean Corpuscular Volume 76.7 fL (80-100); Mean Platelet Volume 8.9 fL (7.4-10.4); Monocytes # (auto) 0.51 K/uL (0.11-0.59); Monocytes % (auto) 6.8 %; Neutrophils # (auto) 5.38 K/uL (1.4-6.5); Platelet Count 219 K/uL (130-400); RDW Coefficient of Variation 14.6 % (11.5-14.5); RDW Standard Deviation 41.4 fL (36.4-46.3); Red Blood Count 4.84 M/uL (4.7-6.1); White Blood Count 7.47 K/uL (4.8-10.8)
--- NOTE | 2021-07-02 06:43 | Discharge Summary ---
Date of Service July 02, 2021 Admission HPI Per Admitting Provider 50 yo M with hx recurrent perineal abscesses, psoriasis and diabetes in ER for repeat abscess formation. He is on tremfya for treatment of the psoriasis, and noticed that he usually gets these infections about 1 week after he gets the shot. States the pain is 0/10 when sitting still in bed, 4/10 when trying to adjust and move around the bed. Had a fever of 102 and chills at home. Admission Exam Per Admitting Provider Constitutional: obese, sitting comfortably in bed, Eyes: EOMI, pupils equal and reactive bilaterally, no scleral icterus Cardiac: RRR, no murmurs, gallops or rubs. Normal S1, S2 Pulm: CTA BL, no wheezes, rhonchi, crackles or rubs, moving air well throughout both lungs Abd: soft, nontender, nondistended, normal bowel sounds, no rebound or guarding : deferred by patient request, see Urology note Extremities: 2+ peripheral pulses, no edema Neuro: no focal deficits, moving all 4 limbs, A&Ox3 Principal Diagnosis perineal abscess Discharge Exam General: A&Ox3. NAD. Cooperative. HEENT: Atraumatic, normocephalic. EOMI Pulm: Mild bibasilar crackles likely 2/2 atelectasis. -wheezes Symmetrical chest rise. No respiratory distress. Cardiac: RRR, -mrg. No LE edema. Abdominal: Nontender, nondistended, soft. 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 +enlarged and tender scrotum. Perineal abscess packed. Discharge Data Allergies Allergy/AdvReac Type Severity Reaction Status Date / Time No Known Allergies Allergy Verified 06/28/21 21:22 Consultations 06/28/21 22:52 ED Decision to Admit Stat Procedures Performed Operation Date: 06/28/21 23:30 Actual Procedures p Incision and Drainage of Scrotal Abscess(Not Applicable) - Otoniel Hodgson DO Ordered Studies 07/02/21 05:32 07/02/21 05:32 labs day of dispo 07/02/21: cbc stable. Hb 12.3. bmp stable. K 3.7. 8/18 wound culture w/ group B strep rare amts prelim. + low counts intestinal abdirahman. Chest X-Ray 06/28/21 20:26 IMPRESSION: Mild left lung base opacities suggestive of probable atelectasis. Pelvis CT 06/28/21 20:26 CT pelvis w/IV con only IMPRESSION: 1. Perineal abscess measuring up to 11 cm in length extends from the base of the penis into the volar tissues adjacent to the scrotum. There is associated mild to moderate cellulitis. 2. No intrapelvic extension or acute intrapelvic abnormality. Hospital Course (1) Perineal abscess: Junior Jha is a 50-year-old male with PMH of DM2, HTN, psoriasis, GERD, recurrent perineal infections who was admitted for treatment of perineal abscess on 06/28/21, discharged home on 07/02/21. 1. Sepsis secondary to Perineal Abscess - SIRS criteria met on admission with fever > 38C, tachycardia >90, WBC > 12 - CT Pelvis: Tubular shaped, curvilinear peripheral enhancing fluid collection 9 x2.4cm abscess from base of penis to scrotal junction. - s/p I&D in OR by urology--follow further recs - lang during the admission. lang out prior to discharge. - Patient improving significantly since I&D in terms of symptoms--tachycardia resolved, last fever with Tmax 38C on 06/30/21 10PM. - Wound culture done in OR: rare group B strep (prelim sensitive to ampicillin, ceftriaxones. Resistent to azithro, clinda, erythro) plus low counts of probably intestinal abdirahman. Few bacteroides caccae. few prevotella bivia. - Zosyn during this admission. Augmentin BID upon dispo home - Home health for wound care; daily packing w/ iodoform material and cleaning w/ saline. See wound care instructions section. - Blood Culture NGTD - f/u w/ urology and PCP w/in 1 wk 2. DM2 - continue home regimen 3. HTN - continue home regimen 4. GERD - continue home regimen (2) Diabetes: Total Time Total Time Spent Total Time Spent (In Minutes): <30 Discharge Plan Discharge Items Patient Disposition: Home - Home Health Services Reason For Visit: PERINEAL ABSCESS Discharge Diagnosis: perineal abscess Activity: Per Instructions section Non-emergency contact: Primary Care Provider and Urologist Call non-emergency contact if: you have any medication questions, your symptoms worsen, you have a fever and your wound has increased drainage Follow-up/Referrals: Raj Flood MD [Physician] - (call Dr. Flood's office on Sunday. Plan is to reschedule 07/04/21 appointment for appointment towards end of week. urology followup for perineal abscess) Robinson Jean [Primary Care Provider] - (hospital follow up within 1 week) Diet: Regular Addtl Attending Provider Instructions: You were admitted to [facility] on 06/28/21 for perineal abscess and fever. The urologist was consulted and your abscess was drained and you were treated w/ IV antibiotics. Stop home biologic immunosuppressing psoriasis medication because this correlates with higher chance of infection risk. F/u w/ dermatology for your psoriasis. You have been prescribed an oral antibiotic called Augmentin. Take this twice a day with the first dose starting tonight (07/02 ~10pm). The last dose will be on 07/12/21 evening. Follow up with your PCP in 1 week and with your urologist by end of next week. Wound care instructions are below. Avoid taking baths. Wound packing ideally will be changed daily. Return if symptoms worsen such as fever/chills, intractable pain, vomiting, numbness/tingling of groin area, or pus drainage. Addtl Product Support Analyst Provider Instructions: wound care instructions. You have been arranged to have home health services for wound dressing changes for the perineal wound. You will need daily packing with iodoform and irrigation with saline until healed by secondary intent. Pending Studies at Discharge: No Stand-Alone Forms: My [facility], Work/School Release, Smoking Cessation Medications and DC Order Prescriptions: New amoxicillin-pot clavulanate [Augmentin] 875-125 mg tablet 1 tab PO BID 11 Days Qty: 22 RF: 0 Continued nystatin 100,000 unit/gram cream 1 applic TOP BID Qty: 15 RF: 4 betamethasone dipropionate 0.05 % cream 1 applic topical BID Qty: 15 RF: 2 pantoprazole [address] for susp in packet 40 mg PO Q OTHER DAY RF: 0 famotidine [Acid Hourly Shift Manager (famotidine)] 20 mg tablet 20 mg PO QAM RF: 0 ferrous fumarate 325 mg (106 mg iron) tablet 325 mg PO HS RF: 0 metformin 1,000 mg tablet 1,000 mg PO BID RF: 0 atorvastatin 20 mg tablet 20 mg PO QPM RF: 0 tadalafil 5 mg tablet 18.5 mg PO DAILY Qty: 30 RF: 11 metoprolol tartrate 50 mg Tablet 50 mg PO QPM RF: 0 metoprolol tartrate 50 mg Tablet 100 mg PO QAM RF: 0 cetirizine 10 mg Tablet 10 mg PO QAM RF: 0 lisinopril 2.5 mg Tablet 2.5 mg PO HS RF: 0 Ozempic 0.25 mg or 0.5 mg(2 mg/1.5 mL) Pen Injector 0.5 mg SUBCUT WK RF: 0 ibuprofen 200 mg Tablet 200 mg PO Q6H PRN (Reason: Pain) RF: 0 Discontinued sulfamethoxazole-trimethoprim [Bactrim DS] 800-160 mg tablet 1 tab PO BID 10 Days Qty: 20 RF: 0 Discharge Orders: Discharge Order (Routine); Ordered 07/02/21 Ordered By: Miguel High/Other Patient Handouts: A1C, High Blood Sugar (Hyperglycemia), Managing Type 2 Diabetes Admission Data Admit Date/Time: 06/29/21 00:06 Attending Provider: Waqas Braga Admit Provider: Eva Geiger Primary Care Provider: Robinson Jean Other Providers: Gregor Schafer ; Waqas Braga Other Interventions: Discharge Summary Assessment (RN) Last Done: 07/02/21 16:17 Supervising Physician Co-Signing Physician Notes I personally examined the patient and verified all gerber points of history and exam, discussed case, and agree with decision making with Dr Boyer Feeling better. Pain doing better. Would like to go home. Appears stable for home. Vitals noted, in general he is awake and alert pleasant no distress. HEENT normocephalic atraumatic mucous membranes are moist. Breathing unlabored no accessory muscle use good effort. Neuro without focal deficits. Skin without rashes/pallor/icterus Perineal/probable scrotal cellulitis with abscess and sepsis present on admissionfortunately improvingand with strep on cultureimproved, afebrile for greater than 24 hours, white count has normalized, symptoms have improved. Safe for home on Augmentinfinish out 14 days of total therapy. Continue local wound care and outpatient urology follow-up. He is stopping his biologic for his psoriasis, and will follow up with dermatology for an alternative treatment strategy. Resident Activity Tracking Resident Involvement: Resident Care Provided Care Provided: [facility] Medicine Home Health Attestation I certify that this patient is under my care and that I, or a physicians him assistant working with me, had a face to-face encounter that meets the [id number] encounter requirements with this patient. The encounter with the patient was in whole, or in part, for the following medical condition, which is the primary reason for home health care (list medical condition): Perineal Abscess I certify that, based on my findings, the following services are medically necessary home health services: Wound care My clinical findings support the need for the above services because: Skilled Nsg Assessment Further, I certify that my clinical findings support that this patient is homebound (i.e. absences from home require considerable and taxing effort and are for medical reasons or jain services or infrequently or of short duration when for other reasons) because: Certification for Home Health Services: Based on the above findings, I certify that this patient is confined to the home and needs intermittent half-way care, physical therapy and/or speech therapy or continues to need occupational therapy. The patient is under my care, and I have initiated the establishment of the plan of care. This patient will be followed by a physician who will periodically review the plan of care.
[2021-07-02 06:45] LABS: BUN Creatinine Ratio 11.7 (10-20); Calcium 9.1 mg/dl (8.5-10.1); Creatinine Clr Calc Pharmacy 129.6 ml/min; Est GFR (African American) 103.8 ml/min; Est GFR (Non-African American) 89.5 ml/min; Potassium 3.7 mmol/L (3.5-5.1)
[2021-07-02] MEDS: PANTOprazole 40 MG TAB PO SCH (08:12)
[2021-07-02] MEDS: METOPROLOL TARTRATE 100 MG TAB PO SCH (08:12)
[2021-07-02] MEDS: INSULIN ASPART 100 UNITS/ML 3 ML PEN SC SCH ×2 (09:11→12:43)
--- NOTE | 2021-07-02 18:10 | Billing Data ---
Date of Service July 02, 2021 Coding Level of Care Code D/C DAY MANAGEMENT <30 MINS
== END 2021-07-02 16:46 | disposition home health service (06) | DRG 854 ==
LOC: ED 20:03 → OR 06-29 00:05 → 2N 06-29 00:06 → SUATTDRO 06-29 00:06
DX: Z68.37 Body mass index [BMI] 37.0-37.9, adult; Z87.891 Personal history of nicotine dependence; Z83.3 Family history of diabetes mellitus; L02.215 Cutaneous abscess of perineum; I10 Essential (primary) hypertension; E11.9 Type 2 diabetes mellitus without complications; K61.1 Rectal abscess; E78.5 Hyperlipidemia, unspecified; A41.9 Sepsis, unspecified organism; E66.01 Morbid (severe) obesity due to excess calories; N49.2 Inflammatory disorders of scrotum; K21.9 Gastro-esophageal reflux disease without esophagitis; Z79.84 Long term (current) use of oral hypoglycemic drugs